=== PATIENT | female | born 1955 | race Caucasian/White ===

== ENCOUNTER → 2020-03-14 11:55 | Outpatient (BNVA) | payer SELFPAY | PROVIDERS: Family Provider Nurse Practitioner Family; PCP Family Medicine; Referring Provider Nurse Practitioner Family; Visit Provider Nurse Practitioner Family | DX: R32 Unspecified urinary incontinence (principal); R31.9 Hematuria, unspecified; R30.0 Dysuria | CPT/HCPCS: 80053; 81001; 88112 ==

== ENCOUNTER → 2020-04-04 14:25 | Outpatient (BNVA) | payer SELFPAY | PROVIDERS: Family Provider Nurse Practitioner Family; PCP Family Medicine; Visit Provider Urology | DX: R31.0 Gross hematuria (principal); N30.20 Other chronic cystitis without hematuria | CPT/HCPCS: 80053; 81001; 87086; 87106 ==

== ENCOUNTER 2020-05-01 08:06 | Outpatient (CLI) | payer SELFPAY ==
[2020-05-01 08:54] LABS: Blood Urea Nitrogen 25 mg/dL (8-23); Glomerular Filtration Rate 72.7 mL/min (90-130)
[2020-05-01] MEDS: iohexol 300 mg/mL 100 mL Btl IV (10:24)
--- NOTE | 2020-05-01 10:30 | CT_ITS ---
WS: [id number] CT ABDOMEN AND PELVIS WITH AND WITHOUT CONTRAST HISTORY: GROSS HEMATURIA TECHNIQUE: Unenhanced 5 mm axial imaging first performed through the abdomen. Post contrast imaging t hrough the abdomen and pelvis. Oral contrast has not been provided. Sagittal and coronal reformats a re submitted. All CT scans at [facility] use at least one of these dose optimization tech niques: automated exposure control; mA and/or kV adjustment per patient size (includes targeted exams where dose is matched to clinical indication); or iterative reconstruction. CONTRAST: Omnipaque 300; 95 mL IV. DLP: 4944.82 mGy.cm COMPARISON: None available. Lung bases are clear. Mild cardiomegaly. Small hiatal hernia. Subcapsular cyst RIGHT lobe of the liver measures 8 mm. Benign granuloma along the surface of the LEF T lobe. Liver is slightly enlarged but no mass. Normally distended gallbladder, indeterminate for cho lelithiasis. Normal size spleen with granulomata. Mild fatty replacement of the pancreas. Bilateral adrenal gland thickening. Slightly greater on the LEFT. Most consistent with benign adenoma . The largest on the LEFT measures 14 mm. Moderate atherosclerosis aorta with no aneurysm. RIGHT kidney: Mild perinephric stranding with no obstruction or mass. No renal calcifications. Mildly prominent extrarenal pelvis. The ureter is normal size. LEFT kidney: Normal size kidney with mild perinephric stranding. No solid mass or calcification. Norm al size ureter. Incomplete contrast opacification of the LEFT ureter at the pelvic brim. Urinary bladder: Mildly distended urinary bladder. There is diffuse wall thickening measuring up to 1 2 mm. The postcontrast imaging there is mild enhancement of the wall thickening. No focal mass. Diffuse constipation with numerous diverticula. No evidence for an obstruction or acute diverticuliti s. Appendix is normal. No ascites. No adenopathy. No osteoblastic or osteolytic bone disease. CT/CT abdomen pelvis wo/w [address] IMPRESSION: 1. No renal mass, calcifications or obstruction. 2. Mild bilateral perinephric stranding around each kidney may be chronic. May be related to mild UTI. Incomplete contrast opacification of the ureters. 3. Marked diffuse bladder wall thickening measuring up to 12 mm with mild enha ncement. Suspect cystitis. This may be the explanation for the patient's hematu rebecca. 4. Indeterminate for cholelithiasis, no cholecystitis. 5. Normal appendix. 6. Constipation.
== END 2020-05-01 08:07 | disposition home or self-care (01) ==
LOC: RAD 08:08
PROVIDERS: Family Provider Nurse Practitioner Family; PCP Family Medicine; Visit Provider Urology
DX: R31.0 Gross hematuria (principal); K59.00 Constipation, unspecified
CPT/HCPCS: 36415; 74178; 82565; 84520

== ENCOUNTER 2020-05-10 13:55 | Observation (INO) | payer SELFPAY ==
[2020-05-09 10:41] VITALS: BMI 36.3
[2020-05-10] VITALS (21 sets, daily range): BP systolic 122–152; BP diastolic 62–93; PULSE 63–76; RESP 12–19; TEMP 36.3–36.8; O2SAT 86–98
--- NOTE | 2020-05-10 11:42 | ANES.PREANE2 ---
Pre-Anesthetic Assessment Pre-Anesthetic Assessment: Height/Weight: Height 1.68 m Weight 102.058 kg Temp Pulse Resp BP Pulse Ox 97.5 F L 72 16 152/93 97 05/10/20 11:18 05/10/20 11:18 05/10/20 11:18 05/10/20 11:18 05/10/20 11:18 Preop Diagnosis: Abnormal bladder mucosa Proposed Procedure: Operation Date: 05/10/20 12:20 Proposed Procedures p Bladder Biopsy(Not Applicable) - Matt Phoenix MD s Cystoscopy/59121 N30.20 R39.89(Not Applicable) - Matt Phoenix MD Familial anesthetic complications: none Was Beta Steve taken within 24 hours: N/A Last intake: Intake Last Liquid Date 05/10/20 Last Liquid Time 07:30 Last Solid Date 05/09/20 Last Solid Time 20:00 Social: Social History: No alcohol and No tobacco Exam: Pre-Anes Outpt Exam: alert, oriented x 3, clear to auscultation bilaterally and regular rate & rhythm Airway: Cervical ROM: WNL MP: 3 Dentition: False Pulmonary: Pulmonary: None reported CV/HEM: Comments: tachycardia from thyroid : : None reported Hepatic: Hepatic: None reported GI: GI: None reported Metabolic: Metabolic: DM, Morbid obesity and Thyroid Musc/skel: Musc/skel: Fibromyalgia Neuropsych: Neuropsych: None reported Anesthetic Plan: ASA status: 2 Anesthesia: General Risk of > 500 ml blood loss (7ml/kg in children): No PFSH Anesthesia PFSH: Medical History Chronic cystitis Diabetes Gross hematuria Hypothyroidism Urgency of urination Surgical History H/O laparoscopy S/P tonsillectomy and adenoidectomy Family History Mother , at age 90 Pneumonia Father , at age 64 Heart disease Social History Smoking and tobacco status: former smoker Alcohol intake: never Marital status: Current occupational status: employed 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
[2020-05-10] MEDS: sodium chloride 0.9% 1,000 ML 30 ML IV (11:59)
[2020-05-10 12:03] LABS: Glucose Point of Care 181 mg/dL (70-110)
--- NOTE | 2020-05-10 12:15 | P.HPUD_ITS ---
Surgery/Procedure H&P Update DATE OF PROCEDURE: May 10, 2020 DATE H&P PERFORMED: 05/01/20 H&P UPDATE INFORMATION: I have reviewed H&P completed within last 30 days, No changes to prior documentation and H&P is in [facility] EMR on date indicated PREOP DIAGNOSIS: Abnormal bladder mucosa PLANNED PROCEDURE: Operation Date: 05/10/20 12:20 Proposed Procedures p Bladder Biopsy(Not Applicable) - Matt Phoenix MD s Cystoscopy/32751 N30.20 R39.89(Not Applicable) - Matt Phoenix MD
--- NOTE | 2020-05-10 12:16 | PM.OP ---
Operative Report Date of procedure: May 10, 2020 Pre-op Diagnosis: Abnormal bladder mucosa Post-op diagnosis: same Procedure Done: Cystoscopy, bladder biopsies Pathology: other (Tissue culture and anatomic pathology with bilateral sampling of abnormal mucosa ) Surgeon: Lizett Anesthesia: General Estimated blood loss: Minimal Urine output: Not measured Complications: None Condition: stable Disposition: PACU Brief History: Ms. Friedman is a very pleasant 64-year-old white female first evaluated February 2020 for complaints of bladder pain, gross hematuria, dysuria and spasm feeling. Urinalysis showed pyuria and large blood. Nitrite negative. She was initially treated with antibiotics and on follow-up after approximately 3 weeks there was no significant improvement in her symptoms. Pain was increasing. Was still having some hematuria as well. For that reason a cystoscopy was performed that showed a diffusely inflamed bladder, cloudy urine with sediment most typical for chronic cystitis but still quite impressive in its severity. To CIPROFLOXACIN with the addition of FLUCONAZOLE. Cytology was inflammatory but without malignant cells. She reacted poorly to the ciprofloxacin and was switched to KEFLEX. A CT scan was performed to look for evidence of any upper urinary tract abnormality as a source of bleeding and it was normal from an upper ureter tract perspective but did show severe bladder wall thickening without hydronephrosis. Symptoms failed to improve on antibiotics and for that reason it was elected to perform biopsies and tissue culture. Procedure: After routine preoperative evaluation examination and obtaining of informed consent was taken to the operating suite on 05/10/2020 where general anesthesia was administered without difficulty after appropriate timeout was performed, SCDs confirmed to be functioning, preoperative antibiotics administered, beta-rosas protocol confirmed. Prepped and draped in usual sterile fashion in dorsolithotomy position pain careful attention to avoiding pressure points. 21 Belarusian cystoscope with 30 degree lens was introduced into urethral meatus and advanced into the bladder under videoscopy. The bladder was systematically examined with findings consistent as seen in outpatient. There is diffuse inflammatory changes on the bladder wall involving approximately 70% mostly laterally and toward the dome. There was no distinct papillary tumor but there were some lesions that looked suspicious. The orifices were not involved in these changes. The urethra did not accommodate the 25 [place]ian continuous flow resectoscope sheath so [place] sounds were utilized to dilate the urethra in order for easy passage of the sheath. The gyrus bipolar system was utilized and samples were taken with the super loop both from the right lateral and left lateral wall. Several samples were sent for tissue culture. The button probe was utilized to fulgurate the base of each of these resection sites. On final inspection hemostasis was meticulous. All samples were removed from the bladder. The bladder was then drained with a 20 Bel[place]ian three-way Alonzo catheter with 10 cc in the balloon. She tolerated procedure well without complications and was awakened in the operating room and returned to the recovery room in stable condition. PLANS: 1. Maintain observation status overnight. 2. Light CBI prophylactically.
[2020-05-10 13:38] LABS: Glucose Point of Care 142 mg/dL (70-110)
[2020-05-10] MEDS: fentaNYL 50 mcg/mL INJ 2mL IVP (13:39)
[2020-05-10] MEDS: morphine 4 mg/mL SDV 1 mL 2 MG IVP ×2 (13:49→14:02)
--- NOTE | 2020-05-10 14:14 | SUR.PHASEI ---
PT RESTING QUIETLY TAKING ICE CHIPS PT C/O OF BURNING FACE SCALE 3 VSS AND NOT ELEVATED CARR PATENT OF CLEAR URINE , IV PATENT TO LT HAND, CBI INFUSING AT MOD RATE, REPORT CALLED TO FLOOR
--- NOTE | 2020-05-10 15:00 | SUR.PHASEI ---
1430 PT TO FLOOR , PT MOVES SELF TO BED CARR PATENT OF CLEAR URINE , CBI INFUSING AT MOD RATE, APPOX 400ML CBI INFUSED IN PACU AND 600 URINE EMPTIED. BILAT SCDS ON PT , LM STRAP TO SECURE CARR TO LT THIGH, PT ALERT AND TALKATIVE TO NURSE AMARI RN IN ROOM. BP 130/74,HR 65, RESP 18, SATS ON 3LNC 94%
[2020-05-10] MEDS: HYDROcodone-acetaminophen 5-325 mg Tablet 1 TAB PO ×2 (15:36→22:35)
[2020-05-10 17:13] LABS: Glucose Point of Care 140 mg/dL (70-110)
[2020-05-10] MEDS: cephALEXin 500 mg Capsule PO ×2 (19:31→22:06)
--- NOTE | 2020-05-10 19:50 | PC.NURSE ---
Pt resting in bed urine light pink 900 ml emptied from cantor bag.
[2020-05-10 20:02] LABS: Glucose Point of Care 297 mg/dL (70-110)
[2020-05-10] MEDS: insulin glargine 100 units/1 mL 20 UNIT SUBCUT (20:32)
[2020-05-11] VITALS (8 sets, daily range): BP systolic 118–140; BP diastolic 62–82; PULSE 64–76; RESP 16–20; TEMP 36.6–37.1; O2SAT 93–96
[2020-05-11] MEDS: HYDROcodone-acetaminophen 5-325 mg Tablet 1 TAB PO ×2 (04:52→10:57)
[2020-05-11 06:40] LABS: Glucose Point of Care 211 mg/dL (70-110)
--- NOTE | 2020-05-11 06:51 | PC.NURSE ---
cantor removed at Dr Lizett canas, pt tolerated well. Balloon intact. Hat placed in toliet and bottles
[2020-05-11] MEDS: levothyroxine 100 mcg Tablet 200 MCG PO (07:09)
[2020-05-11] MEDS: cephALEXin 500 mg Capsule PO ×2 (08:14→12:23)
[2020-05-11] MEDS: fluconazole 100 mg Tablet 200 MG PO (08:14)
--- NOTE | 2020-05-11 10:21 | PC.CHAP ---
Pastoral Care Encounter/Spiritual Assessment Type of Contact [] Declined re examiner visit [] Patient/Family/Request visit [] Outpatient visit [] Follow-up visit [] Physician referral [] Code/Alert [x] Routine visit [] Staff referral [] Actively dying [] Patient sleeping [] Family support [] [] Out of room [] Palliative care [] [] Receiving care in room [] Pre-surgical visit [] Trauma [] Long length of stay [] ICU visit [] Other: Relational/Emotional Strength [] Patient feels connected with others/family/visitors/staff [] Distress [] Loneliness/isolation [] Abandonment Spirituality of Patient [] Person of Shira [] Attends Congregational of their Shira [] Believes in Prayer [] Reads Bible or Faith materials [] There are Spiritual issues 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 [x] Prayer [x] Active listening [x] Non-anxious presence [x] Spiritual/emotional support [] Crisis/trauma care [] Spiritual counseling [] Bereavement support [] Provided bereavement packet [] Provided Bible/devotional materials [] Provided toy/stuffed animal, coloring book to patient or family member [] Provided Communion [] Anointing/[place] [] Salvation [x] Completed spiritual assessment [] Other: Impact on Illness or Injury [] Angry [] Fearful [] Anxious [] Often cries [] Exhaustion [] Unable to work [] Unable to attend sikhism [] Unable to walk/stand [] Unable to read [] Unable to drive [] Unable to eat/drink [] Unable to sleep [] Unable to be with family [] Patient intubated [] Other: Summary Patient resting well Time spent with patient 5 min
--- NOTE | 2020-05-11 10:40 | ANE.PACU2 ---
Inpatient post-anesthesia follow up: Airway intact: Yes Vital signs: Temperature 97.9 F Pulse Rate 71 Respiratory Rate 18 Blood Pressure 137/82 Pulse Oximetry 93 Oxygen Delivery Me thod [ Nasal Cannula Current Rate & Del keon] Oxygen Delivery Me thod Nasal Cannula Oxygen Flow Rate [ Current Rate 2 & Delivery] Oxygen Flow Rate 3 Fraction of Inspir ed Oxygen Hydration adequate: Yes Nausea and vomiting: No Pain level: 1 Mental status: Baseline
--- NOTE | 2020-05-11 10:46 | PC.NURSE ---
Cath removed at 0700 0800 voided 100mls slight pink color. 0900 voided 100mls clear, no visible blood or clots. 0905 bladder scan 79mls. No distention or increased tenderness.
--- NOTE | 2020-05-11 11:20 | PC.NURSE ---
1105 Voided 100mls, clear, slight pink, no clots.
--- NOTE | 2020-05-11 12:20 | PC.NURSE ---
1215 Patient bladder scanned and appears to be retaining 300ml'd urine. Patient becoming more tender and uncomfortable. Per Military Source Operations Officer, placed 16 vincentian cath, and secured to leg, with 10mls fluid to bulb. Patient had 700mls out of pink urine with some sediment. Will report to Dr. Teresa.
--- NOTE | 2020-05-11 15:27 | P.DS_ITS ---
Discharge Providers Date of Admission: 05/10/20 13:55 Date of Discharge: May 11, 2020 Attending Provider at Admission: Matt Phoenix MD Attending Provider at Discharge: Matt Phoenix MD Primary Care Provider: Neelam Galindo MD Reason for Visit Reason for Visit: N30.20 R39.89 UNBLE TO SEE DX Hospital Course Hospital Course: She was admitted on 05/10/2020 for biopsies of the bladder wall for histology as well as deep tissue cultures. Please see operative report. On postoperative day #1 the Alonzo catheter was removed and she voided spontaneously with clearing urine but after a couple voids she began to have increasing abdominal pain and decreasing urine output and Alonzo catheter was placed with 700 cc in her bladder. The pain that she was experiencing related to the retention resolved immediately. There was no severe bleeding afterwards. She was felt to be a good candidate for further convalescence at home while wait ing for the pathology report. Was discharged on the afternoon of postoperative day 1 in stable condition. Alonzo catheter was left indwelling at discharge with plans for voiding trial in [facility] instruction on 05/15/2020. Physical Exam Const: COMMON NORMALS: no acute distress, alert and well nourished GENERAL APPEARANCE: well kempt and well developed ORIENTATION/CONSCIOUSNESS: not confused Resp: COMMON NORMALS: normal respiratory effort EFFORT & INSPECTION: No labored and No Actively coughing Neuro: SENSORIUM/ORIENTATION: Yes alert Psych: COMMON NORMALS: mental status grossly normal APPEARANCE: Yes grossly normal and Yes well kempt ATTITUDE: Yes calm and Yes engaged Discharge Data Data Completed and Pending: Pending at discharge Category Date Time Status Tissue Culture an d Gram Stain [facility] Lab 05/10/20 13:00 Results Pathology: Surgic al [PTH] Routine Pth 05/10/20 13:29 Received Labs from last 24 hours 05/11/20 05/10/20 05/10/20 06:36 19:57 17:06 POC Glucose 211 297 140 Vitals: Last Vital Signs Temp 98.1 F 05/11/20 11:50 Pulse 74 05/11/20 11:50 Resp 20 H 05/11/20 11:50 BP 139/80 05/11/20 11:50 Pulse Ox 94 05/11/20 11:50 Discharge Plan Discharge Patient Disposition: Home, Self-Care Condition: Stable Prescriptions: Continued fluconazole 200 mg tablet 200 mg PO DAILY Qty: 30 RF: 1 cephalexin 500 mg capsule 500 mg PO QID Qty: 120 RF: 2 glipizide 10 mg tablet 10 mg PO BID RF: 0 Lantus U-100 Insulin 100 unit/mL solution 20 unit SUBCUT DAILY RF: 0 levothyroxine 200 mcg capsule 225 mcg PO DAILY RF: 0 Trulicity 1.5 mg/0.5 mL pen injector 1.5 mg SUBCUT .weekly RF: 0 hydrocodone-acetaminophen [Quinault] 5-325 mg tablet 1 tab PO Q6H PRN (Reason: bladder pain) 3 Days Qty: 10 RF: 0 Discharge Orders: Discharge Order (Routine); Ordered 05/11/20 Ordered By: Matt Phoenix Referrals: Matt Phoenix MD [Physician] - 05/15/20 (Voiding trial [facility] instruction) Discharge Diet: Usual diet Discharge Activity: Limit activity as instructed Activity Restrictions/Additional Instructions: 1. We will plan a voiding trial and self-catheterization instruction on the office next Thursday. 2. Continue to drink a lot of water to help keep your urine clear 3. He will have a leg bag and a night bag for the catheter drainage to use at your preference 4. Please call if you have any concerns prior to that time. 5. Limit lifting to 10 pounds. 6. [id number] Azo-Standard may be beneficial for discomfort related to the catheter. Discharge Attestations Time Spent in Discharge Care*: less than 30 min Quality Metrics Clinical Quality Measures During this hospital stay, did patient experience: None Coding Level of Care Code Acute Billiard Parlor Manager for Thomasg Fwd Exam Expanded Problem Focused
== END 2020-05-11 16:45 | disposition home or self-care (01) ==
LOC: MEDSURG 13:55
PROVIDERS: Admitting Provider Urology; PCP Family Medicine; Visit Provider Urology
PROC: (CPT 52204; principal; 2020-05-10 12:00)
PROC: 0TJB8ZZ Inspection of Bladder, Via Natural or Artificial Opening Endoscopic (ICD-10-PCS; CPT 52000; 2020-05-10 12:00)
DX: N32.89 Other specified disorders of bladder (principal); E11.9 Type 2 diabetes mellitus without complications; E66.01 Morbid (severe) obesity due to excess calories; Z68.36 Body mass index [BMI] 36.0-36.9, adult; M79.7 Fibromyalgia; E03.9 Hypothyroidism, unspecified; Z87.891 Personal history of nicotine dependence; Z79.4 Long term (current) use of insulin
CPT/HCPCS: 52204; 12345; 36416; 51702; 82962; 87070; 87176; 87205; 88305; 96372; G0378; J1815; J2270; J2704; J3010; J3490; J7030

== ENCOUNTER 2020-05-16 21:10 | Emergency (ER) | payer SELFPAY ==
[2020-05-16 21:53] LABS: Glucose Urine UA 2+ (Normal); Protein Urine 2+ (Negative); Urine Appearance Cloudy (CLEAR); Urine Color Dark Yellow (Yellow); pH Urine 5 (5-7)
[2020-05-16 21:54] LABS: Add Urine Microscopic? YES; Bilirubin Urine Neg (NEGATIVE); Blood Urine 3+ (Negative); Ketones Urine Negative (Negative); Leukocyte Esterase Urine 2+ (Negative); Nitrate Urine Negative (Negative); Urobilinogen Urine Norm (Negative)
[2020-05-16 22:17] VITALS: BP 167/84; PULSE 81; RESP 20; TEMP 37.1; O2SAT 97
[2020-05-16 22:21] LABS: RBC Urine >100 /hpf (0-2); WBC Urine TOO NUMEROUS TO CNT /hpf (0-5)
[2020-05-16 22:22] LABS: Add Urine Culture? No; Bacteria Urine 3+; Squamous Epithelial Cell Urine 15-25 (0-5)
[2020-05-16 23:43] LABS: Basophils # 0.1 10^3/uL (0.0-0.1); Basophils % 0.7 %; Eosinophils # 0.7 10^3/uL (0.0-0.8); Eosinophils % 6.1 %; Hematocrit 35.7 % (37.0-47.0); Hemoglobin 11.7 g/dL (11.5-15.3); Lymphocytes % 34.9 %; Mean Corpuscular HGB Conc 32.8 g/dL (30.0-36.0); Mean Corpuscular Hemoglobin 26.2 pg (28.0-34.0); Monocytes # 0.9 10^3/uL (0.2-0.9); Monocytes % 7.9 %; Neutrophils # 5.81 10^3/uL (1.8-7.7); Neutrophils % 50.2 %; Nucleated Red Blood Cells % 0 %; Platelet Count 322 10^3/cmm (130-400); Red Blood Count 4.46 10^6/uL (4.1-5.3); White Blood Count 11.6 10^3/uL (4.0-10.0)
[2020-05-16 23:59] LABS: Anion Gap 17.1 (5-19); Blood Urea Nitrogen 6 mg/dL (8-23); Calcium 9.7 mg/dL (8.5-10.5); Carbon Dioxide 22 mmol/L (22-29); Chloride 102 mmol/L (98-107); Glomerular Filtration Rate 225.4 mL/min (90-130); Glucose 105 mg/dL (65-115); Osmolality Calculated 282 mOsm/kg (285-295); Potassium 3.1 mmol/L (3.5-5.1); Sodium 138 mmol/L (136-145)
== END 2020-05-16 23:30 | disposition left against medical advice (07) ==
PROVIDERS: Emergency Provider Emergency Medicine; PCP Family Medicine
DX: Z53.21 Procedure and treatment not carried out due to patient leaving prior to being seen by health care provider (principal)
CPT/HCPCS: 36415; 80048; 81001; 81003; 85025; 99281

== ENCOUNTER → 2020-06-05 14:20 | Outpatient (BNVA) | payer SELFPAY | PROVIDERS: PCP Family Medicine; Visit Provider Student in an Organized Health Care Education/Training Program | DX: B37.9 Candidiasis, unspecified (principal); N30.20 Other chronic cystitis without hematuria | CPT/HCPCS: 81001; 87086; 87106; 87107; 87186 ==

== ENCOUNTER 2020-06-21 08:25 | Outpatient (RCR) | payer SELFPAY ==
[2020-06-14 10:45] VITALS: BP 186/70; PULSE 67; RESP 18; TEMP 36.6; O2SAT 96
[2020-06-14 11:18] VITALS: BP 175/85; PULSE 75; RESP 18; TEMP 36.6; O2SAT 98; BMI 36.3
[2020-06-15 13:09] VITALS: BP 169/80; PULSE 73; RESP 18; TEMP 36.7; O2SAT 93
[2020-06-16 17:27] VITALS: BP 156/73; PULSE 85; RESP 18; TEMP 36.8; O2SAT 96
[2020-06-17 17:20] VITALS: BP 123/86; PULSE 85; RESP 18; TEMP 36.8; O2SAT 95
[2020-06-18 08:41] VITALS: BP 180/78; PULSE 68; RESP 20; TEMP 36.7; O2SAT 97
[2020-06-19 11:55] VITALS: BP 178/82; PULSE 82; RESP 18; TEMP 36.5; O2SAT 97
[2020-06-20 09:23] VITALS: BP 196/90; PULSE 66; RESP 18; TEMP 36.6; O2SAT 95
--- NOTE | 2020-06-20 09:32 | SUR.PREOP ---
PATIENT AWARE THAT HER BLOOD PRESSURE IS ELEVATED. PATIENT STATED SHE WOULD CALL HER PCP AND REQUEST TO BE PUT BACK ON LISINOPRIL. THIS NURSE ENCOURAGED PATIENT TO CALL APOLINAR WHEN DONE WITH OUTPATIENT INFUSION. PATIENT IS ASYMPTOMATIC.
[2020-06-21 08:48] VITALS: BP 201/77; PULSE 74; RESP 18; TEMP 37.3; O2SAT 95
[2020-06-21 09:10] LABS: Alanine Aminotransferase 17 U/L (0-33); Alkaline Phosphatase 93 IU/L (35-105); Anion Gap 12.6 (5-19); Aspartate Amino Transferase 16 U/L (0-32); Blood Urea Nitrogen 13 mg/dL (8-23); Calcium 8.7 mg/dL (8.5-10.5); Carbon Dioxide 28 mmol/L (22-29); Chloride 101 mmol/L (98-107); Creatinine Clr Calc Pharmacy 140.7092; Globulin 2.9 g/dL (1.3-4.6); Glucose 233 mg/dL (65-115); Osmolality Calculated 290 mOsm/kg (285-295); Potassium 3.6 mmol/L (3.5-5.1); Sodium 138 mmol/L (136-145); Total Bilirubin 0.3 mg/dL (0.15-1.2); Total Protein 6.9 g/dL (6.6-8.7)
[2020-06-22 09:57] VITALS: BP 159/77; PULSE 72; RESP 18; TEMP 36.3; O2SAT 94
[2020-06-23 14:12] VITALS: BP 184/71; PULSE 79; RESP 18; TEMP 36.7; O2SAT 97
== END 2020-06-25 23:59 | disposition home or self-care (01) ==
LOC: OPS 08:25
PROVIDERS: PCP Nurse Practitioner Family; Visit Provider Student in an Organized Health Care Education/Training Program
DX: B37.9 Candidiasis, unspecified (principal)
CPT/HCPCS: 36415; 80053; 96365; J0637; J7050

== ENCOUNTER → 2020-07-03 15:25 | Outpatient (BNVA) | payer SELFPAY | PROVIDERS: PCP Nurse Practitioner Family; Visit Provider Student in an Organized Health Care Education/Training Program | DX: B37.9 Candidiasis, unspecified (principal) | CPT/HCPCS: 81003; 87086 ==

== ENCOUNTER → 2020-07-26 12:14 | Outpatient (BNVA) | payer SELFPAY | PROVIDERS: PCP Nurse Practitioner Family; Visit Provider Obstetrics & Gynecology | DX: N99.3 Prolapse of vaginal vault after hysterectomy (principal); Z87.828 Personal history of other (healed) physical injury and trauma | CPT/HCPCS: 87635 ==

== ENCOUNTER 2020-07-31 11:51 | Observation (INO) | payer SELFPAY ==
[2020-07-26 13:14] VITALS: BMI 36.3
--- NOTE | 2020-07-26 13:31 | ANES.PREANE2 ---
Pre-Anesthetic Assessment Pre-Anesthetic Assessment: Height/Weight: Height 1.68 m Weight 102.058 kg Preop Diagnosis: Abnormal bladder mucosa Proposed Procedure: Operation Date: 07/31/20 07:00 Proposed Procedures p Laparoscopic Uterosacral Ligament Suspen 85020 95618 91830 46821 N81.11 N99.3 Z87.828(Not Applicable) - MD lucas Smith Anterior Repair(Not Applicable) - MD lucas Smith Posterior Repair(Not Applicable) - MD lucas Smith Cystoscopy(Not Applicable) - MD lucas Smith poss Suprapubic Catheter Placement(Not Applicable) - Anthony Staples MD Familial anesthetic complications: None Social: Social History: No alcohol and No tobacco Exam: Pre-Anes Outpt Exam: alert, oriented x 3, clear to auscultation bilaterally and regular rate & rhythm Airway: MP: 2 Dentition: False CV/HEM: CV/HEM: HTN Metabolic: Metabolic: DM and Thyroid Musc/skel: Musc/skel: Fibromyalgia Neuropsych: Neuropsych: None reported Anesthetic Plan: ASA status: 2 Anesthesia: General Risk of > 500 ml blood loss (7ml/kg in children): No PFSH Anesthesia PFSH: Medical History (Updated 07/16/20 @ 08:17 by Demetria Nguyen LPN) Chronic cystitis Cystocele Cystocele, midline Diabetes Gross hematuria Hypertension Hypothyroidism Urgency of urination Surgical History (Updated 07/15/20 @ 16:51 by Anthony Staples MD) H/O laparoscopy H/O total vaginal hysterectomy (~1988) TVH with A&P repair. Dx: Uterovaginal prolapse S/P tonsillectomy and adenoidectomy Family History Father Hypertension Hypercholesteremia Mother Hypertension Hypercholesteremia Thyroid disease Other Heart disease Social History Smoking and tobacco status: former smoker Quit status (tobacco): has quit using tobacco Year quit tobacco: 2004 Alcohol intake: current Alcohol intake frequency: holidays/special occasions only Data Anesthesia Cardiac Studies: No Data to Display
[2020-07-31] VITALS (23 sets, daily range): BP systolic 143–209; BP diastolic 71–90; PULSE 67–92; RESP 10–26; TEMP 36.4–37.5; O2SAT 91–99
[2020-07-31] MEDS: phenazopyridine 100 mg Tablet 200 MG PO ×3 (06:25→20:23)
--- NOTE | 2020-07-31 06:45 | P.ANESUD_ITS ---
Pre-Anesthetic Update Pre-Anesthetic Assessment: Date of Surgery/Procedure: 07/31/20 Preop Promise gnosis: Vaginal vault prolapse after hysterectomy, Cystocele, Rectocele Proposed Procedure: Operation Date: 07/31/20 07:00 Proposed Procedures p Laparoscopic Uterosacral Ligament Suspen 35044 97360 60370 55841 N81.11 N99.3 Z87.828(Not Applicable) - MD lucas Smith Anterior Repair(Not Applicable) - MD lucas Smith Posterior Repair(Not Applicable) - MD lucas Smith Cystoscopy(Not Applicable) - MD lucas Smith poss Suprapubic Catheter Placement(Not Applicable) - Anthony Staples MD Any changes to Pre-Anesthetic Assessment?: No Last Intake: Intake Last Liquid Date 07/30/20 Last Liquid Time 22:00 Last Solid Date 07/30/20 Last Solid Time 19:00 Labs Last 48hrs: Laboratory Results - last 48 hr 07/31/20 07/31/20 07/31/20 06:39 06:54 06:54 WBC 10.6 H RBC 4.08 L Hgb 12.5 Hct 37.1 MCV 90.9 MCH 30.6 MCHC 33.7 RDW 12.4 Plt Count 239 MPV 10.1 Neut % (Auto) 65.1 Lymph % (Auto) 26.0 [place] % (Auto) 4.3 Eos % (Auto) 3.7 Baso % (Auto) 0.6 Neut # (Auto) 6.93 Lymph # (Auto) 2.8 [place] # (Auto) 0.5 Eos # (Auto) 0.4 Baso # (Auto) 0.1 Nucleated RBC % (a uto) 0 Nucleated RBCs # 0.0 Sodium 139 Potassium 4.2 Chloride 102 Carbon Dioxide 27 Anion Gap 14.2 BUN 19 Creatinine 0.5 GFR Calculation 125.0 Glucose 208 H POC Glucose 192 Calculated Osmolal ity 296 H Calcium 9.3 Blood Type Rho(D) Type Antibody Screen 07/31/20 07/31/20 07:24 12:53 WBC RBC Hgb Hct MCV MCH MCHC RDW Plt Count MPV Neut % (Auto) Lymph % (Auto) [place] % (Auto) Eos % (Auto) Baso % (Auto) Neut # (Auto) Lymph # (Auto) [place] # (Auto) Eos # (Auto) Baso # (Auto) Nucleated RBC % (a uto) Nucleated RBCs # Sodium Potassium Chloride Carbon Dioxide Anion Gap BUN Creatinine GFR Calculation Glucose POC Glucose 341 Calculated Osmolal ity Calcium Blood Type B Negative Rho(D) Type Negative Antibody Screen Negative Vitals: Temperature 98.3 F 07/31/20 13:35 Temperature Source Oral 07/31/20 13:35 Pulse Rate 78 07/31/20 13:35 Respiratory Rate 16 07/31/20 13:35 Respiratory Effort 07/31/20 12:11 Respiratory Depth Normal 07/31/20 12:11 Blood Pressure 148/84 07/31/20 13:35 Blood Pressure Lexi n 105 07/31/20 13:35 Blood Pressure Pos ition Semi Fowlers 07/31/20 13:35 Pulse Oximetry 94 07/31/20 13:35 Oxygen Delivery Me thod 07/31/20 13:35 Oxygen Flow Rate 3 07/31/20 13:35 Exam: Pre-Anes Outpt Exam: alert, oriented x 3, clear to auscultation bilaterally and regular rate & rhythm Cardiac Studies: No Data to Display
--- NOTE | 2020-07-31 06:57 | W.PM.OPSUD ---
Surgery/Procedure H&P Update DATE OF PROCEDURE: July 31, 2020 DATE H&P PERFORMED: 07/12/20 H&P UPDATE INFORMATION: I have reviewed H&P completed within last 30 days, I have examined patient prior to procedure, No changes to prior documentation and H&P is in [facility] [place] on date indicated PREOP DIAGNOSIS: Vaginal vault prolapse after hysterectomy, Cystocele, Rectocele PLANNED PROCEDURE: Operation Date: 07/31/20 07:00 Proposed Procedures p Laparoscopic Uterosacral Ligament Suspen 20126 99422 18673 97225 N81.11 N99.3 Z87.828(Not Applicable) - MD lucas Smith Anterior Repair(Not Applicable) - MD lucas Smith Posterior Repair(Not Applicable) - MD lucas Smith Cystoscopy(Not Applicable) - MD lucas Smith poss Suprapubic Catheter Placement(Not Applicable) - Anthony Staples MD
[2020-07-31] MEDS: ketorolac 30 mg/mL INJ IVP ×3 (06:58→18:31)
[2020-07-31 07:01] LABS: Glucose Point of Care 192 mg/dL (70-110)
[2020-07-31] MEDS: sodium chloride 0.9% 1,000 ML 30 ML IV (07:01)
[2020-07-31 07:13] LABS: Basophils # 0.1 10^3/uL (0.0-0.1); Basophils % 0.6 %; Eosinophils # 0.4 10^3/uL (0.0-0.8); Eosinophils % 3.7 %; Hematocrit 37.1 % (37.0-47.0); Hemoglobin 12.5 g/dL (11.5-15.3); Lymphocytes # 2.8 10^3/uL (0.8-4.8); Mean Corpuscular HGB Conc 33.7 g/dL (30.0-36.0); Mean Corpuscular Hemoglobin 30.6 pg (28.0-34.0); Mean Corpuscular Volume 90.9 fL (81-99); Mean Platelet Volume 10.1 fL (7.4-10.4); Monocytes # 0.5 10^3/uL (0.2-0.9); Monocytes % 4.3 %; Neutrophils # 6.93 10^3/uL (1.8-7.7); Neutrophils % 65.1 %; Nucleated Red Blood Cells % 0 %; Platelet Count 239 10^3/cmm (130-400); Red Blood Count 4.08 10^6/uL (4.1-5.3); Red Cell Distribution Width 12.4 % (12.1-15.1); White Blood Count 10.6 10^3/uL (4.0-10.0)
[2020-07-31 07:34] LABS: Anion Gap 14.2 (5-19); Blood Urea Nitrogen 19 mg/dL (8-23); Calcium 9.3 mg/dL (8.5-10.5); Carbon Dioxide 27 mmol/L (22-29); Chloride 102 mmol/L (98-107); Creatinine Clr Calc Pharmacy 140.7092; Glucose 208 mg/dL (65-115); Osmolality Calculated 296 mOsm/kg (285-295); Potassium 4.2 mmol/L (3.5-5.1); Sodium 139 mmol/L (136-145)
--- NOTE | 2020-07-31 08:35 | SUR.OPER ---
Called and notified of surgical progress.
[2020-07-31] MEDS: vasopressin 20 unit/mL INJ INJECTION (10:46)
--- NOTE | 2020-07-31 11:44 | SUR.PHASEI ---
1140 PATIENT TO PACU FROM OR. RR EVEN AND UNLABORED. CARR CATH IN PLACE, SUPRAPUBIC CATH IN PLACE, DRAINING ORANGE URINE. PATIENT RESTING COMFORTABLE ON GURNEY.
--- NOTE | 2020-07-31 12:06 | P.OP_ITS ---
Operative Report Date of procedure: July 31, 2020 Pre-op Diagnosis: Vaginal vault prolapse after hysterectomy, Cystocele, Rectocele Post-op Diagnosis: Vaginal vault prolapse after hysterectomy, Cystocele, Rectocele. Procedure Done: Laparoscopic uterosacral ligament suspension with enterocele repair, Anterior and posterior repair, Cystoscopy, Suprapubic catheter insertion Specimens removed/disposition: None Surgeon: Anthony Staples Padding Machine Operator: None Anesthesia: General Estimated blood loss (mL): 150 IV fluids (mL): 1,300 Urine output (mL): 350 Complications: None Findings: Third-degree vaginal vault prolapse, 3rd-4th degree cystocele, second- degree high rectocele, Deficient perineum. Adhesions of the epiploica to the vaginal cuff. Both ovaries were identified and adherent low in the pelvis. Brief History: Patient is a 64-year-old 7, para 6-0-1-6 postmenopausal female who is status post hysterectomy. She had presented to the office as a referral from Dr. Phoenix due to vaginal prolapse. She had been having problems with prola pse for approximately 5 to 6 years which is now progressed to the point where she had notices a bulge at the vaginal opening which will occasionally protrude beyond it. She denies problems currently with bladder emptying but had had problems previously resulting in infection. She reports having had stress incontinence in the past that had improved over time. She had had a prior vaginal hysterectomy with A&P repair due to prolapse. On exam, she was noted to have a second-degree vault prolapse with third-degree cystocele and mild rectocele with almost nonexistent perineal body. Treatment options were discussed with her and she is presenting for surgical treatment at this time. Procedure: Patient was taken to the operating room where general anesthesia was obtained. She was prepped and draped in usual sterile fashion in a dorsal supine position with legs in Toño style stirrups. Sequential compression boots have been placed prior to starting the case. Exam under anesthesia was performed. Patient was noted to have 3rd degree vaginal vault prolapse, 3rd-4th degree cystocele, and second-degree high rectocele. Perineal defect was also noted. Alonzo catheter was inserted. The infraumbilical region was injected with 1% lidocaine with epinephrine. Skin incision was made with the knife and a size 10 trocar and sheath inserted under direct visualization using an Optiview type technique. The anterior abdominal wall was inspected and noted be free of adhesions. In the left and right lower quadrants lateral to the inferior epigastric vessels, the skin was injected with 1% lidocaine with epinephrine. Skin incision was made with a knife and a 5 mm trocar and sheath inserted with direct visualization at each site. The pelvis was thoroughly inspected. She was noted to have both ovaries present. Adhesions of the epiploica to the vaginal cuff were present. She also had adhesions of the epiploica to the ovaries bilaterally. Using scissors with monopolar cautery, the adhesions were taken down. The pelvis was then further inspected with no abnormalities noted. Due to difficulty with keeping the bowel out of the operative area, decision was made to use a laparoscopic fan. To the right of the midline at approximately a third of the distance between the umbilicus and this pubic symphysis, the skin was injected with 1% lidocaine with epinephrine. Skin incision was made with a knife and a size 10 trocar and sheath were inserted under direct visualization. In addition approximately 2 fingerbreadths above the umbilicus in the midline, the skin was injected with 1% lidocaine with epinephrine. Skin incision was made with a knife and a 5 mm trocar and sheath were inserted under direct visualization. A laparoscopic fan was passed through the 10 mm port and the bowel held up out of the pelvis. Patient was noted to have a large enterocele. Using 2-0 silk suture, a pursestring stitch was placed picking up the peritoneum of the deep pelvis. Care was taken not to kink the ureters and no placement process. When tied, this obliterated the posterior cul-de-sac well. Using an EEA sizer, the vaginal vault was displaced in a cephalad direction identifying the cephalad most displacement. At that level, starting on the left side, an 0 Ethibond stitch was placed into the uterosacral ligament. Care was taken not to damage underlying structures, ureter, or bowel in the process. This was secured to the left corner of the vaginal vault and tied. On the right side, at the level of the cephalad most displacement of the vagina, 0 Ethibond suture was placed into the uterosacral ligament. Care was again taken not to damage the underlying structures, ureters, or bile in the process. This was secured into the left corner of the vaginal cuff and tied. There was good support of the vaginal cuff noted at this time. Alonzo catheter was removed and cystoscopy was performed. Both ureters were noted to be effluxing urine well. No suture material or masses were noted with in the bladder. Trabeculations were noted to be present. Bladder was drained and Alonzo catheter reinserted. At the right lower quadrant 10 mm site, the fascia was closed using a Michael Guzman suture passing device. 2 passes of 0 Vicryl suture were made through the fascia. When tied this allowed good pneumoperitoneum to be maintained. The abdomen was deflated and the other sheaths removed. The skin incisions were all reapproximated using 4-0 Vicryl suture and skin edges closed with skin glue. The vagina was inspected and patient was still noted to have a large cystocele present. The anterior vaginal wall was in injected with dilute Pitressin solution. Midline incision of the anterior wall was made with a knife. The edges were grasped with Allis clamps and the skin sharply dissected from the underlying vesicovaginal fascia. Evidence of prior anterior repair was present. The dissection was carried from the urethrovesical junction to the vaginal vault and to the lateral aspects of the anterior wall. Due to the degree of cystocele, decision was made to do a 2 layer plication of the anterior wall. Using 2-0 Vicryl sutures, stitches were placed at approximately a third of the distance between the midline and the lateral aspect of the anterior wall. Stitches were brought across to the contralateral side at approximately the same location and was spacing. Multiple stitches were placed. Once they were all placed, they were tied and reduced the cystocele. The second layer was then plicated using 2-0 Vicryl suture with stitches placed into the lateral aspects of the anterior wall and brought across to the contralateral side at the same level. Multiple sutures were placed. Once these were all tied the cystocele was essentially completely reduced. Excess vaginal mucosa was excised. The vaginal mucosa was reapproximated using 3-0 Vicryl suture in a running locking fashion. Patient had been previously noted to have almost nonexistent perineal body from old perineal laceration. Patient was noted to have a 4 fingerbreadth opening of the vaginal introitus. The rectocele had been almost completely eliminated with the vault suspension and enterocele repair. Due to the lack of a perineal body, a perineorrhaphy with limited posterior repair was performed. The skin of the perineum was injected with dilute Pitressin solution. A wedge shaped piece of skin was excised from the perineum. The lower third of the vaginal wall was undermined and opened in the midline. The vaginal mucosa was dissected from the underlying rectovaginal fascia. Using interrupted stitches of 2-0 Vicryl suture, the rectovaginal fascia was plicated in the midline. This process was carried out to the main part of the perineum. This built-up the perineum well. Excess vaginal mucosa was excised and the skin was closed using 3-0 Vicryl suture in a running locking fashion. The suture was brought up to the hymenal ring and then held. The perineal body was then further built-up with interrupted stitches of 2-0 Vicryl suture. Using the 3-0 Vicryl suture that is been previously held, a transition stitch was made in the bulbocavernosus muscles incorporating the stitch bilaterally and tied in the midline, reapproximating them well. Using the 3-0 Vicryl suture, the superficial portion of the perineal body was reapproximated the midline followed by subcuticular closure of the skin. At completion patient had approximately 2-1/2 fingerbreadth opening to the vaginal introitus. The Alonzo catheter was removed and cystoscopy again performed. Both ureters were noted to be effluxing urine well. No suture material or masses were noted within the bladder. The bladder was then filled with approximately 500 mL's of fluid. Approximately 1 fingerbreadth above the pubic symphysis in the midline, skin incision was made with a knife. Using a suprapubic catheter kit, trocar was passed into the dome of the bladder with the catheter passed through the trocar. The trocar was then removed. The catheter balloon was then inflated. Catheter was secured to the anterior abdominal wall using 3-0 nylon suture. Bladder was drained and Alonzo catheter reinserted. The vagina was packed with 1 inch Nu Gauze. Patient tolerated the procedures well. Sponge, needle, and instrument counts were correct. Drains: Alonzo catheter and suprapubic catheter Postoperative Status: Patient was transferred recovery room in satisfactory condition.
[2020-07-31] MEDS: fentaNYL 50 mcg/mL INJ 2mL IVP (12:11)
--- NOTE | 2020-07-31 12:37 | PC.NURSE ---
Patient here from PACU, transferred via stretcher, repositioned in bed, yamil pad clean and dry, cantor cath and suprapubic cath draining freely, patient reports a pain level of 8 on 0-10 pain scale to right lower abdomen, vitals stable as charted, incision sites clean dry and intact open to air, discussed pain management and fall precautions, verbalized understanding and denies further questions or concerns. Call light in reach, side rails up X2
--- NOTE | 2020-07-31 12:40 | PM.PACU ---
PACU note Post-Anesthesia Exam: awake and vital signs stable Disposition: admitted
--- NOTE | 2020-07-31 12:40 | SUR.PHASEI ---
1226 PATIENT TO MED SURG. TOLERATING ICE CHIPS. CARR CATH AND SUPARPUBIC CATH IN PLACE, DRAINING , RED/ORANGE URINE.
[2020-07-31 12:56] LABS: Glucose Point of Care 341 mg/dL (70-110)
[2020-07-31] MEDS: dextrose 5%-lactated ringers 1,000 ML 125 ML IV ×2 (12:56→20:24)
[2020-07-31] MEDS: HYDROcodone-acetaminophen 5-325 mg Tablet PO ×2 (13:25→20:23)
--- NOTE | 2020-07-31 13:36 | PC.NURSE ---
Ice chips and ice water provided, patient requesting [place] for pain, states, I have taken them in the past I will not get nauseated, I do not want to try anything else. PRN norco given per doctors orders, see MAR for further details. SCD's in place, call light in reach.
[2020-07-31] MEDS: morphine 4 mg/mL SDV 1 mL IVP ×2 (15:45→17:57)
--- NOTE | 2020-07-31 16:39 | PC.NURSE ---
Assisted up to chair, X2 assist, used pillow to brace abdomen, Call light in reach.
[2020-07-31 17:06] LABS: Glucose Point of Care 266 mg/dL (70-110)
[2020-07-31] MEDS: docusate sodium 100 mg Capsule PO (17:24)
--- NOTE | 2020-07-31 17:48 | PC.NURSE ---
Assisted back to bed, X2 assist, repositioned and placed call light in reach, side Rails up X2.
[2020-07-31 21:11] LABS: Glucose Point of Care 201 mg/dL (70-110)
[2020-08-01 01:01] VITALS: BP 117/62; PULSE 81; RESP 18; TEMP 37.1; O2SAT 94
[2020-08-01] MEDS: HYDROcodone-acetaminophen 5-325 mg Tablet PO ×2 (01:42→08:34)
[2020-08-01] MEDS: ketorolac 30 mg/mL INJ IVP ×2 (02:02→06:27)
--- NOTE | 2020-08-01 03:00 | ANE.PACU2 ---
Inpatient post-anesthesia follow up: Airway intact: Yes Vital signs: Temperature 97.8 F Pulse Rate 75 Respiratory Rate 18 Blood Pressure 135/68 Pulse Oximetry 93 Oxygen Delivery Me thod Room Air Oxygen Flow Rate 2 Fraction of Inspir ed Oxygen Hydration adequate: Yes Nausea and vomiting: No Pain level: 1 Mental status: Baseline
[2020-08-01 04:10] VITALS: BP 135/68; PULSE 75; RESP 18; TEMP 36.6; O2SAT 93
[2020-08-01] MEDS: dextrose 5%-lactated ringers 1,000 ML 125 ML IV (04:25)
--- NOTE | 2020-08-01 05:56 | PC.NURSE ---
SHIFT SUMMARY Has rested well tonight. po Hydrocodone and scheduled IV Toradol have done well for pain control. Says right abdomen is where most of her pain is located still. Up to ambulate in vasquez this am. Moves slow but melinda well. Has had adequate output from Alonzo and suprapubic cath. Output from each varies as to which has most. Urine orange from meds. IV infusing at 125ml/hr rate. All surgical stab incisions are clean & dry with dermabond closure. Some bruising at sites. Vag packing remains in place. Has very small amt bleeding on pad this am. Will advance to regular diet this am. Is passing flatus
[2020-08-01 06:19] LABS: Hematocrit 32.8 % (37.0-47.0); Hemoglobin 10.7 g/dL (11.5-15.3); Mean Corpuscular HGB Conc 32.6 g/dL (30.0-36.0); Mean Corpuscular Hemoglobin 30.7 pg (28.0-34.0); Mean Corpuscular Volume 94.3 fL (81-99); Mean Platelet Volume 9.9 fL (7.4-10.4); Platelet Count 237 10^3/cmm (130-400); Red Blood Count 3.48 10^6/uL (4.1-5.3); Red Cell Distribution Width 12.7 % (12.1-15.1); White Blood Count 13.4 10^3/uL (4.0-10.0)
[2020-08-01 07:21] LABS: Glucose Point of Care 293 mg/dL (70-110)
[2020-08-01] MEDS: docusate sodium 100 mg Capsule PO (07:29)
[2020-08-01] MEDS: levothyroxine 150 mcg Tablet 225 MCG PO (07:29)
--- NOTE | 2020-08-01 07:29 | PM.PN ---
Subjective Subjective: Interval history: Patient reports having pain in the right lower quadrant, but states that the pain has been adequately controlled overall. She denied lightheadedness or dizziness with ambulation. She denied shortness of breath or chest pains. She reports tolerating clear liquids without nausea or vomiting. She reports passing flatus this morning. Vitals/I&O/Wt Last Vital Signs Temp 97.8 F 08/01/20 04:10 Pulse 75 08/01/20 04:10 Resp 18 08/01/20 04:10 BP 135/68 08/01/20 04:10 Pulse Ox 93 08/01/20 04:10 07/31/20 08/01/20 08/01/20 22:59 06:59 14:59 Intake Total 1053.333 / 2653.333 1300 / 3953.333 Output Total 1065 / 2195 425 / 2620 Balance -11.667 / 458.333 875 / 1333.333 Physical Exam Const: COMMON NORMALS: no acute distress, average body habitus, alert and well nourished GENERAL APPEARANCE: well developed ORIENTATION/CONSCIOUSNESS: Yes oriented to person, Yes oriented to place and Yes oriented to time Resp: COMMON NORMALS: normal respiratory effort and clear to auscultation bilaterally AUSCULTATION: clear to auscultation bilaterally Cardio: COMMON NORMALS: regular rate, regular rhythm, No gallops present (Cardio), No murmurs present (Cardio) and No rub (Cardio) RATE: regular rate RHYTHM: regular rhythm GI: COMMON NORMALS: Soft to palpation, No hepatosplenomegaly present and no masses INSPECTION: Yes incision (Laparoscopy sites well approximated with skin glue present.) AUSCULTATION: Yes normoactive bowel sounds PALPATION: Yes Soft to palpation, Yes Tenderness to palpation present (GI) (Mild tenderness throughout the abdomen, but increased in the lower abdomen.), Yes No hepatosplenomegaly present and No Hernia present : EXTERNAL FEMALE EXAM: No Hernia present Extremity: COMMON NORMALS: no clubbing, cyanosis or edema and no calf tenderness NARRATIVE EXTREMITY EXAM: SCDs in use. Neuro: SENSORIUM/ORIENTATION: Yes alert, Yes oriented to person, Yes oriented to place and Yes oriented to time Psych: COMMON NORMALS: normal affect MOOD & AFFECT: Yes euthymic mood Urinary Catheter Management^: Alonzo: Cath Placed During This Visit: yes, but has since been removed by the nurse Reason for Continuing Indwelling Catheter: Decision to DC Catheter Urinary Catheter Date of Insertion: 07/31/20 Urinary Catheter Time of Insertion: 10:16 Date Urinary Catheter Removed: 08/01/20 Time Urinary Catheter Discontinued: 07:20 Data : 08/01/20 05:34 07/31/20 06:54 A&P Assessment and plan (1) Vaginal vault prolapse after hysterectomy: Postoperative day 1, status post laparoscopic uterosacral ligament suspension with enterocele repair, anterior and posterior colporrhaphy, cystoscopy with suprapubic catheter insertion. Patient is doing well overall today. Increase activities. May shower. Advance to regular diet. Alonzo catheter and vaginal packing removed this morning. Start voiding trials this morning. If voided volumes greater than 100 mL with postvoid residual of less than 100 mL, then plan to remove suprapubic catheter as well. Discharge instructions were discussed with her. Plan to discharge to home later today. Status: Acute (2) Cystocele, midline: See Vaginal Vault Prolapse . Status: Acute (3) Rectocele: See Vaginal Vault Prolapse . Status: Acute (4) Diabetes: Patient was continued on her Lantus dose following surgery. She was covered with sliding scale insulin during the day yesterday. Will restart her usual dose of glipizide today. Status: Acute Qualifiers: Diabetes mellitus type: type 2 Diabetes mellitus custodial insulin use: without marine oil terminal superintendent use Diabetes mellitus complication status: without complication Qualified Code(s): E11.9 - Type 2 diabetes mellitus without complications (5) Hypertension: Patient has been continued on her usual dose of lisinopril. Status: Acute Qualifiers: Hypertension type: essential hypertension Qualified Code(s): I10 - Essential (primary) hypertension Attestations Medical Necessity Statement*: Plan to discharge to home later today. 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
[2020-08-01] MEDS: lisinopril 5 mg Tablet 30 MG PO (07:30)
[2020-08-01] MEDS: phenazopyridine 100 mg Tablet 200 MG PO (07:31)
[2020-08-01 08:21] VITALS: BP 129/67; PULSE 69; RESP 18; TEMP 37.1; O2SAT 94
[2020-08-01] MEDS: insulin glargine 100 units/1 mL 20 UNIT SUBCUT (08:35)
[2020-08-01 10:01] LABS: Glucose Point of Care 282 mg/dL (70-110)
--- NOTE | 2020-08-01 10:26 | PC.NURSE ---
Catheter prn Catheter clamped at 0730 until 0950, patient attempted to urinate with no results. Catheter unclamped and drained with 100 ml dark red urine noted. Catheter clamped again. Will attempt to urinate in 2 hours at 1150 am
[2020-08-01 11:20] LABS: Glucose Point of Care 242 mg/dL (70-110)
[2020-08-01 11:36] VITALS: BP 100/56; PULSE 71; RESP 18; TEMP 37.2; O2SAT 90
[2020-08-01] MEDS: ibuprofen 800 mg tablet PO (11:42)
--- NOTE | 2020-08-01 13:19 | P.DS_ITS ---
Discharge Providers Date of Admission: 07/31/20 11:51 Date of Discharge: August 01, 2020 Attending Provider at Admission: Anthony Staples MD Attending Provider at Discharge: Anthony Staples MD Primary Care Provider: CARMEN JENKINS Diagnoses at Discharge Discharge Diagnosis (1) Vaginal vault prolapse after hysterectomy: Status: Acute (2) Cystocele, midline: Status: Acute (3) Rectocele: Status: Acute (4) Diabetes: Status: Acute Qualifiers: Diabetes mellitus complication status: without complication Diabetes mellitus intermediate manager insulin use: without intermediate manager use Diabetes mellitus type: type 2 Qualified Code(s): E11.9 - Type 2 diabetes mellitus without complications (5) Hypertension: Status: Acute Qualifiers: Hypertension type: essential hypertension Qualified Code(s): I10 - Essential (primary) hypertension Reason for Visit Reason for Visit: cystocele Hospital Course Hospital Course: Patient is a 64-year-old female 7, para 6-0-1-6 who is postmenopausal and status post hysterectomy. She presented to the office as a referral from Dr. Phoenix due to vaginal prolapse. She had been having problems with vaginal prolapse for approximately 5 to 6 years but it is now progressed to the point that she notices a bulge at the vaginal opening and occasionally beyond that. She reports having had stress incontinence symptoms in the past but this had improved over time. She had had problems with bladder emptying resulting in infections but this had also improved. At the time of her prior hysterectomy, she had had an AMP repair. During the exam, she had been found to have a second-degree vault prolapse with 1/3 degree cystocele and a mild rectocele with almost a nonexistent perineal body. Treatment options had been discussed with her and she wished to proceed to a surgical treatment. Past medical history was significant for her having type 2 diabetes, hypertension, and hypothyroidism. Patient presented to the hospital and had a laparoscopic uterosacral ligament s uspension with enterocele repair, A&P repair, cystoscopy, and suprapubic catheter insertion. She did well following surgery. Sugars were covered with sliding scale insulin after surgery. She was also continued on her levothyroxine and lisinopril. Postoperative Day 1 Patient reported doing well. She was reporting right lower quadrant pain which had been controlled with pain medications. She denied lightheadedness or dizziness with ambulation. She denies shortness of breath or chest pains. She was tolerating clear liquids that morning without nausea and vomiting. She had started passing flatus that morning. Diet was advanced and she tolerated it well. Vaginal packing was removed in the morning and voiding trial started. She was unable to void on her own with post void residuals of greater than 100 mL. As a result she went home with Alonzo catheter present. Patient was discharged home later on in the day of postoperative day 1. Discharge instructions have been discussed with her. On the Thursday after discharge, she had been instructed to perform post void residuals and to call the office on Thursday with the results. She was to leave the catheter open to drain until Thursday. She had also been instructed to resume all of her usual home medications. Physical Exam Urinary Catheter Management^: Alonzo: Cath Placed During This Visit: yes, but has since been removed by the nurse Reason for Continuing Indwelling Catheter: Decision to DC Catheter Urinary Catheter Date of Insertion: 07/31/20 Urinary Catheter Time of Insertion: 10:16 Date Urinary Catheter Removed: 08/01/20 Time Urinary Catheter Discontinued: 07:20 Discharge Data Data Completed and Pending: Pending at discharge Category Date Time Status ES surgery / GI i mages Routine Exams 07/31/20 06:44 Taken Retype for Patiet s ABO/Rh Routine Lab 07/31/20 08:36 Ordered Urine Culture Carmella mercedes Lab 07/31/20 08:00 Results Labs from last 24 hours 08/01/20 08/01/20 08/01/20 11:04 07:16 06:38 WBC RBC Hgb Hct MCV MCH MCHC RDW Plt Count MPV POC Glucose 242 293 282 08/01/20 07/31/20 07/31/20 05:34 20:59 17:01 WBC 13.4 H RBC 3.48 L Hgb 10.7 L Hct 32.8 L MCV 94.3 MCH 30.7 MCHC 32.6 RDW 12.7 Plt Count 237 MPV 9.9 POC Glucose 201 266 Vitals: Last Vital Signs Temp 98.9 F 08/01/20 11:36 Pulse 71 08/01/20 11:36 Resp 18 08/01/20 11:36 BP 100/56 08/01/20 11:36 Pulse Ox 90 08/01/20 11:36 Discharge Plan Discharge Patient Disposition: Home Condition: Stable Prescriptions: New hydrocodone-acetaminophen 5-325 mg Tablet 1 - 2 tab PO Q6H PRN (Reason: Moderate To Severe Pain) Qty: 30 RF: 0 ibuprofen 800 mg Tablet 800 mg PO TID PRN (Reason: pain) Qty: 40 RF: 0 Continued bumetanide 1 mg tablet 1 mg PO DAILY PRN (Reason: swelling) RF: 0 lisinopril 5 mg tablet 30 mg PO DAILY RF: 0 glipizide 10 mg tablet 10 mg PO BID RF: 0 Lantus U-100 Insulin 100 unit/mL solution 20 unit SUBCUT DAILY RF: 0 Trulicity 1.5 mg/0.5 mL pen injector 1.5 mg SUBCUT .weekly RF: 0 levothyroxine 200 mcg capsule 225 mcg PO DAILY RF: 0 ibuprofen 200 mg capsule 800 mg PO Q6H PRN (Reason: Pain) RF: 0 Discharge Orders: Discharge Order (Routine); Ordered 08/01/20 Ordered By: Anthony Staples Referrals: Anthony Staples MD [Physician] - 08/15/20 9:45 am (Postoperative visit.) Discharge Diet: Regular Discharge Activity: Limit activity as instructed Patient Instructions: Hydrocodone/Acetaminophen (By mouth), Ibuprofen (By mouth), Alonzo Catheter Care, How to Care for Your Suprapubic Catheter (GEN), OB Abdominal Surgery - [facility] Activity Restrictions/Additional Instructions: Starting Thursday, 1. Clamp catheter. 2. Attempt to void at least every 2 hours and record amount. If voided volume plus residual is less than 200 mL, then increase the time between attempted voids. 3. After attempted void, unclamp catheter for approximately 10 minutes and then reclamped catheter and record amount. 4. Repeat the above steps. 5. At bedtime, leave the catheter unclamped. 6. Call the office Thursday morning with results of your voided volumes and residuals. 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
--- NOTE | 2020-08-01 14:10 | PC.CHAP ---
Pastoral Care Encounter/Spiritual Assessment Type of Contact [] Declined bessemer converter operator visit [] Patient/Family/Request visit [] Outpatient visit [] Follow-up visit [] Physician referral [] Code/Alert [X] Routine visit [] Staff referral [] Actively dying [] Patient sleeping [] Family support [] [] Out of room [] Palliative care [] [] Receiving care in room [] Pre-surgical visit [] Trauma [] Long length of stay [] ICU visit [] Other: Relational/Emotional Strength [] Patient feels connected with others/family/visitors/staff [] Distress [] Loneliness/isolation [] Abandonment Spirituality of Patient [] Person of Shira [] Attends Scientology of their Shira [] Believes in Prayer [] Reads Bible or Jewish materials [] There are Spiritual issues to be addressed Director [facility] 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 [] Prayer [] Active listening [] Non-anxious presence [] Spiritual/emotional support [] Crisis/trauma care [] Spiritual counseling [] Bereavement support [] Provided bereavement packet [] Provided Bible/devotional materials [] Provided toy/stuffed animal, coloring book to patient or family member [] Provided Communion [] Anointing/[place] [] Salvation [] Completed spiritual assessment [] Other: Impact on Illness or Injury [] Angry [] Fearful [] Anxious [] Often cries [] Exhaustion [] Unable to work [] Unable to attend alevism [] Unable to walk/stand [] Unable to read [] Unable to drive [] Unable to eat/drink [] Unable to sleep [] Unable to be with family [] Patient intubated [] Other: Summary Time spent with patient
--- NOTE | 2020-08-01 14:31 | PC.NURSE ---
Discharge note Patient discharge instructions given per physician orders. New meds with side effects taught. Patient verbalized understanding. IV removed with catheter intact. Pressure dressing applied. Patient tolerated well.
== END 2020-08-01 14:50 | disposition home or self-care (01) ==
LOC: MEDSURG 11:51
PROVIDERS: Admitting Provider Obstetrics & Gynecology; PCP Nurse Practitioner Family; Visit Provider Obstetrics & Gynecology
PROC: 0USG4ZZ Reposition Vagina, Percutaneous Endoscopic Approach (ICD-10-PCS; CPT 57425; principal; 2020-07-31 07:00)
PROC: 0JQC0ZZ Repair Pelvic Region Subcutaneous Tissue and Fascia, Open Approach (ICD-10-PCS; CPT 57240; 2020-07-31 07:00)
PROC: (CPT 57250; 2020-07-31 07:00)
PROC: 0TJB8ZZ Inspection of Bladder, Via Natural or Artificial Opening Endoscopic (ICD-10-PCS; CPT 52000; 2020-07-31 07:00)
PROC: (CPT 51102; 2020-07-31 07:00)
DX: N99.3 Prolapse of vaginal vault after hysterectomy (principal); E11.9 Type 2 diabetes mellitus without complications; I10 Essential (primary) hypertension; Z79.4 Long term (current) use of insulin; E03.9 Hypothyroidism, unspecified; Z87.891 Personal history of nicotine dependence; Z82.49 Family history of ischemic heart disease and other diseases of the circulatory system
CPT/HCPCS: 57260; 57425; 12345; 36415; 36416; 80048; 82962; 85025; 85027; 86850; 86900; 87086; 96361; 96365; 96372; 96374; 96375; G0378; J0131; J0637; J0690; J1815 ×2; J1885; J2270; J2405; J2704; J2710; J3010; J3490; J7030; J7050

== ENCOUNTER 2021-07-03 07:53 | Outpatient (CLI) | payer OTHER, SELFPAY ==
--- NOTE | 2021-07-03 08:00 | MM_ITS ---
WS: [id number] SCREENING DIGITAL MAMMOGRAM WITH CAD HISTORY: SCREENING COMPARISON: None available. Bilateral CC and MLO views submitted. Computer aided detection analyzed. Breast composition: There are scattered areas of fibroglandular density. Partially visualized nodule against the posterior superior RIGHT chest wall associated with the pectoralis muscle. This may be a lymph node but needs to be further evaluated. Otherwise benign appearing calcifications. MM/[place] [id number] IMPRESSION: BI-RADS: 0-Incomplete: Need additional imaging evaluation FOLLOW UP: Need Additional Imaging RIGHT breast: Spot compression views (exaggerated lateral CC and MLO). True ML. Ultrasound to follow if abnormality persists.
== END 2021-07-03 07:54 | disposition home or self-care (01) ==
LOC: RADSHAW 07:56
PROVIDERS: PCP Nurse Practitioner Family; Visit Provider Family Medicine
DX: Z12.31 Encounter for screening mammogram for malignant neoplasm of breast (principal)
CPT/HCPCS: 77067

== ENCOUNTER 2021-07-15 13:26 | Outpatient (CLI) | payer OTHER, SELFPAY ==
--- NOTE | 2021-07-15 13:31 | MM_ITS ---
WS: [id number] ADDITIONAL VIEWS RIGHT BREAST HISTORY: ABNORMAL MAMMOGRAM RT BREAST COMPARISON: 07/03/2021 Compression views right CC and MLO projection. True ML also submitted. Partially visualized nodule prior study corresponds to a benign lymph node with fatty hilum. No addit ional imaging necessary. MM/[place] [id number] IMPRESSION: BI-RADS: 2-Benign FOLLOW-UP: 1 Year Follow-up
== END 2021-07-15 13:27 | disposition home or self-care (01) ==
LOC: RADSHAW 13:29
PROVIDERS: PCP Nurse Practitioner Family; Visit Provider Nurse Practitioner Family
DX: R92.8 Other abnormal and inconclusive findings on diagnostic imaging of breast (principal)
CPT/HCPCS: 77065

== ENCOUNTER 2021-10-30 08:12 | Outpatient (CLI) | payer SELFPAY ==
[2021-10-30 08:20] VITALS: BP 152/71; PULSE 75; RESP 19; TEMP 36.5; O2SAT 97; BMI 36.8
[2021-10-30 09:11] VITALS: BP 152/71; PULSE 75; RESP 19; TEMP 37.4; O2SAT 97
[2021-10-30 10:02] VITALS: BP 139/72; PULSE 70; RESP 17; TEMP 37.1; O2SAT 97
[2021-10-30 10:10] VITALS: BP 139/72; PULSE 70; RESP 17; TEMP 37.1; O2SAT 97
== END 2021-10-30 08:13 | disposition home or self-care (01) ==
LOC: OPS 08:14
PROVIDERS: PCP Nurse Practitioner Family; Visit Provider Nurse Practitioner Family
DX: U07.1 COVID-19 (principal)
CPT/HCPCS: 96365

== ENCOUNTER 2022-01-21 12:47 | Outpatient (CLI) | payer OTHER, SELFPAY ==
--- NOTE | 2022-01-21 13:04 | MM_ITS ---
WS: [id number] RIGHT 3D TOMOSYNTHESIS DIGITAL MAMMOGRAPHY WITH CAD CLINICAL INFORMATION: ABNORMAL MAMMOGRAM RT BREAST;ENLARGEMENT HISTORY: Palpable lymph nodes RIGHT axilla COMPARISON: July 03, 2021 TECHNIQUE: 5 views of the right breast were obtained. FINDINGS: Scattered fibroglandular densities of the right breast. Palpable marker along the axillary tail. Surr ounding prominent lymph nodes with fatty yolie similar in appearance to the prior examination. Ultraso und is pending. A few punctate calcifications. Vascular calcification. ULTRASOUND BREAST RIGHT TECHNIQUE: Ultrasound right breast focused area of concern. CLINICAL INFORMATION: ABNORMAL MAMMOGRAM RT BREAST;ENLARGEMENT FINDINGS: Ultrasound RIGHT breast along the axillary tail and RIGHT axilla. Several prominent lymph nodes are v isualized with persistent fatty hilum. No cortical thickening. Largest lymph node measures 2.0 x 1.0 x 2.2 cm in the RIGHT axilla. These are probably benign. This can be followed up in 3 months with ult rasgee if continued concern. MM/[place] [id number] IMPRESSION: Prominent lymph nodes can be followed up in 3 months with ultrasoun d if continued concern BI-RADS: 3-Probably Benign FOLLOW UP: 3 Month Follow-up
== END 2022-01-21 12:48 | disposition home or self-care (01) ==
LOC: RADSHAW 12:53
PROVIDERS: PCP Nurse Practitioner Family; Visit Provider Nurse Practitioner Family
DX: R92.8 Other abnormal and inconclusive findings on diagnostic imaging of breast (principal)
CPT/HCPCS: 76642; 77061

== ENCOUNTER 2022-04-01 11:32 | Outpatient (CLI) | payer OTHER, SELFPAY ==
--- NOTE | 2022-04-01 11:45 | US_ITS ---
WS: [id number] INDICATION: Enlarged lymph nodes TECHNIQUE: Ultrasound RIGHT axilla FINDINGS: Comparison January 21, 2022 Ultrasound RIGHT axilla demonstrates persistent prominent lymph nodes in the RIGHT axilla similar to previous. Largest lymph node measures 4.8x 1.7 x 2.0 cm. No significant cortical thickening. Lymph nodes demonstrate persistent fatty hilum with no significant cortical thickening. Although nons pecific this favors a benign etiology, but considering persistent enlargement and palpable concern re commend further evaluation with ultrasound-guided biopsy. US/US soft tissue/extremity [id number] IMPRESSION: 1. Previously described enlarged lymph nodes are persistent. 2. Considering persistence, recommend ultrasound-guided biopsy of the largest lymph node, measuring 4.8 x 1.7 x 2.0 cm today, for more definitive evaluation. .
== END 2022-04-01 11:33 | disposition home or self-care (01) ==
LOC: RAD 11:34
PROVIDERS: PCP Nurse Practitioner Family; Visit Provider Nurse Practitioner Family
DX: R92.8 Other abnormal and inconclusive findings on diagnostic imaging of breast (principal)
CPT/HCPCS: 76882

== ENCOUNTER 2022-09-05 11:51 | Outpatient (CLI) | payer SELFPAY ==
--- NOTE | 2022-09-05 12:13 | USCV_ITS ---
Rosa Friedman Age: 66 Gender: F : 1955 Exam Date: 09/05/2022 12:42 Ordering Phys: Nicholas London MD Technologist: LEONCIO [place] [facility] [place]: LT LEG EDEMA AND PAIN HISTORY: Lower extremity edema. PROCEDURES: Venous duplex imaging was performed in only the left lower extremity. The following venous structures were evaluated: common femoral vein, profunda vein, proximal portion of the greater saphenous vein, superficial femoral vein, and the popliteal vein. In addition, the posterior tibial and peroneal trunk were evaluated. FINDINGS: Normal 2-D Doppler and augmentation and compressibility throughout the lower extremity venous structures. Additional imaging through the proximal calf veins also reveals no thrombus. Limited evaluation of the greater saphenous vein is patent with no thrombus. CONCLUSIONS No DVT left lower extremity. Dr. Viri Armstrong DO (Electronically Signed) Final Date: 05 September 2022 13:47 S
== END 2022-09-05 11:52 | disposition home or self-care (01) ==
PROVIDERS: PCP Nurse Practitioner Family; Visit Provider Family Medicine
DX: R60.0 Localized edema (principal); M79.605 Pain in left leg
CPT/HCPCS: 93971

== ENCOUNTER 2022-11-06 07:25 | Outpatient (CLI) | payer SELFPAY ==
--- NOTE | 2022-11-06 07:45 | XR_ITS ---
WS: [id number] XR foot LT min 3V* [id number] REASON FOR EXAM: PAIN IN LEFT FOOT FINDINGS: No fracture, periosteal reaction, or bone lesion in the left forefoot. Minimal joint space narrowing with subchondral sclerosis and marginal osteophytosis in the DIP joints of the second through the fifth toes. There is mild narrowing of the Lisfranc joint with subchondral sclerosis. There is a severe medial and inferior subluxation of the navicular in relation to the cuneiform artic ulation with sclerosis and bony fragmentation. There is moderate narrowing and subchondral sclerosis in the talonavicular joint. There is a severe pes planus. There is narrowing and subchondral sclerosis of the subtalar joint. Large calcaneal Achilles and plantar enthesophytes. XR/XR foot LT min 3V* [id number] IMPRESSION: Severe deforming arthropathic change in the medial midfoot as above. Possibly this is posttraumatic, less likely neuropathic.
== END 2022-11-06 07:26 | disposition home or self-care (01) ==
PROVIDERS: PCP Nurse Practitioner Family; Visit Provider Family Medicine
DX: M79.672 Pain in left foot (principal)
CPT/HCPCS: 73630

== ENCOUNTER → 2023-04-22 10:02 | Outpatient (BNVA) | payer MEDICARE, OTHER, SELFPAY | PROVIDERS: PCP Nurse Practitioner Family; Visit Provider Podiatrist Foot & Ankle Surgery | DX: M14.672 Charcot's joint, left ankle and foot (principal); E11.8 Type 2 diabetes mellitus with unspecified complications; Z79.4 Long term (current) use of insulin | CPT/HCPCS: 73630; 99204 ==

== ENCOUNTER 2023-07-08 06:06 | Outpatient (CLI) | payer MEDICARE, OTHER, SELFPAY ==
--- NOTE | 2023-07-08 06:14 | CT_ITS ---
WS: [id number] CT LEFT ANKLE, NONCONTRAST, 3D HISTORY: PAIN IN LEFT FOOT, CHARCOT'S JOINT, LEFT ANKLE AND FOOT Technique: All CT scans at [facility] use at least one of these dose optimization techniques: automated exposure control; mA and/or kV adjustment per patient size (includes targeted exams where dose is matched to clinical indication); or iterative reconstruction. DLP: 119.28 mGy.cm COMPARISON: LEFT foot radiograph 04/22/2023 Marked deformity of the ankle joint and the midfoot. Patient has an known Charcot joint as seen radio graphically. Subluxations and dislocations at the tarsal bones. Narrowing of the tibiotalar joint spa ce. Flattening and loss of the normal arch of the foot. Well-corticated osseous fragments at the medial and lateral malleolus. No osteochondral lesion at the talar dome. No loose bodies are identified within the joint space and no fracture. Large enthesopath ies at the Achilles tendon attachment and a large plantar spur. Hypertrophic bone formation and fragm entation involving the articular surfaces of the talus and calcaneus. Marked medial displacement of t he navicular in relationship to the tarsal bones. Widening of the navicular cuboid articulation up to 13 mm. There are more numerous cortical irregularities with fragmentation of bone and erosions invol ving all the tarsal bones. No significant widening identified at the Lisfranc joint. Soft tissue edema surrounding the ankle. Flattening of the normal arch of the foot with dislocations and plantar displacement. IMPRESSION: 1. Abnormal appearance of the ankle joint and the tarsal/intertarsal articulations as also noted radi ographically. Probably representing a Charcot joint. 2. Marked widening of the navicular cuboid articulation. 3. Marked flattening of the normal arch of the foot with plantar displacement of the tarsal bones.
== END 2023-07-08 06:07 | disposition home or self-care (01) ==
LOC: RAD 06:07
PROVIDERS: PCP Nurse Practitioner Family; Visit Provider Orthopaedic Surgery Foot and Ankle Surgery
DX: M14.672 Charcot's joint, left ankle and foot (principal); M79.672 Pain in left foot
CPT/HCPCS: 73700

== ENCOUNTER → 2023-07-21 10:48 | Outpatient (BNVA) | payer MEDICARE, OTHER, SELFPAY | PROVIDERS: PCP Nurse Practitioner Family; Visit Provider Internal Medicine Rheumatology | DX: Z79.899 Other long term (current) drug therapy (principal); M19.90 Unspecified osteoarthritis, unspecified site; M45.6 Ankylosing spondylitis lumbar region; Z11.59 Encounter for screening for other viral diseases; Z11.1 Encounter for screening for respiratory tuberculosis; L40.50 Arthropathic psoriasis, unspecified; Z87.2 Personal history of diseases of the skin and subcutaneous tissue; Z71.85 Encounter for immunization safety counseling; M79.7 Fibromyalgia; E11.610 Type 2 diabetes mellitus with diabetic neuropathic arthropathy; R60.0 Localized edema | CPT/HCPCS: 36415; 73130; 73630; 82306; 83520; 86200; 86235; 86480; 86704; 86803; 86812; 87340; 99205 ==

== ENCOUNTER 2023-07-24 08:17 | Outpatient (CLI) | payer MEDICARE, OTHER, SELFPAY ==
--- NOTE | 2023-07-24 08:30 | US_ITS ---
WS: [id number] ULTRASOUND SOFT TISSUES RIGHT neck. HISTORY: R60.0 - Localized edema COMPARISON: None available. TECHNIQUE: 2-D and color Doppler imaging is submitted. Ultrasound is directed to the palpable area within the RIGHT neck. This is near the parotid gland. Th ere is a very hypoechoic solid mass with increased vascularity corresponding to the palpable mass. Th is mass measures 2.1 x 1.9 x 1.6 cm. This is probably within the parotid gland. IMPRESSION: Solid mass along the RIGHT cervical chain, probably within the parotid or submandibular gland. This i s a a solid mass. Recommend follow-up neck CT with IV contrast. Benign or malignant neoplasm need to be excluded.
== END 2023-07-24 08:18 | disposition home or self-care (01) ==
PROVIDERS: PCP Nurse Practitioner Family; Visit Provider Internal Medicine Rheumatology
DX: R22.1 Localized swelling, mass and lump, neck (principal)
CPT/HCPCS: 76536

== ENCOUNTER 2023-08-12 13:10 | Outpatient (CLI) | payer MEDICARE, OTHER, SELFPAY ==
--- NOTE | 2023-08-12 13:30 | CT_ITS ---
WS: [id number] CT NECK TECHNIQUE: Contrast-enhanced CT of the neck with coronal and sagittal reformatted images. CLINICAL INFORMATION: R60.0 - Localized edema COMPARISON: None. DLP: 231.[address] scans at [facility] use at least one of these dose optimization techniques: automated e xposure control; mA and/or kV adjustment per patient size (includes targeted exams where dose is matc hed to clinical indication); or iterative reconstruction. FINDINGS: Deep to the palpable marker is an ovoid enhancing lesion measuring approximately 1.8 x 1.6 x 1.8 cm. AP by transverse by craniocaudal. This has a solid appearance. Normal submandibular glands. Mastoid air cells are well aerated. Paranasal sinuses are well aerated. Small retention cyst LEFT maxillary sinus. Normal posterior nasopharynx and parapharyngeal fat. Tongu e base appears normal. No evidence of supraglottic or glottic mass. Lung apices are well aerated. Mild carotid bulb calcification. No cervical lymphadenopathy. Straighte roberto of the normal cervical lordosis. Moderate spondylitic changes cervical spine. IMPRESSION: 1. Deep to the palpable marker is an ovoid enhancing solid lesion measuring approximately 1.8 x 1.6 x 1.8 cm. Differential considerations include benign and malignant parotid neoplasms. This is well -circumscribed and may represent parotid adenoma but indeterminant. Recommend ENT consultation. 2. No cervical lymphadenopathy. 3. Normal salivary glands. 4. No evidence of supraglottic or glottic mass.
[2023-08-12 13:52] LABS: Blood Urea Nitrogen 18 mg/dL (8-23)
[2023-08-12] MEDS: iohexol 350 mg/mL 500 mL Btl (per mL) IV (14:05)
== END 2023-08-12 13:11 | disposition home or self-care (01) ==
LOC: RAD 13:11
PROVIDERS: PCP Nurse Practitioner Family; Visit Provider Internal Medicine Rheumatology
DX: R22.1 Localized swelling, mass and lump, neck (principal)
CPT/HCPCS: 70491; 82565; 84520; Q9967

== ENCOUNTER → 2023-08-19 12:31 | Outpatient (BNVA) | payer MEDICARE, OTHER, SELFPAY | PROVIDERS: PCP Nurse Practitioner Family; Referring Provider Internal Medicine Rheumatology; Visit Provider Otolaryngology | DX: D49.0 Neoplasm of unspecified behavior of digestive system (principal); H60.543 Acute eczematoid otitis externa, bilateral; R60.0 Localized edema | CPT/HCPCS: 99205 ==

== ENCOUNTER → 2023-08-20 08:41 | Outpatient (BNVA) | payer MEDICARE, OTHER, SELFPAY | PROVIDERS: PCP Nurse Practitioner Family; Visit Provider Internal Medicine | DX: E03.9 Hypothyroidism, unspecified; E11.610 Type 2 diabetes mellitus with diabetic neuropathic arthropathy; Z79.4 Long term (current) use of insulin; Z79.890 Hormone replacement therapy | CPT/HCPCS: 99204 ==

== ENCOUNTER 2023-08-31 14:39 | Outpatient (CLI) | payer MEDICARE, OTHER, SELFPAY ==
--- NOTE | 2023-08-31 15:08 | MM_ITS ---
WS: [id number] BILATERAL 3D TOMOSYNTHESIS DIGITAL DIAGNOSTIC MAMMOGRAPHY WITH CAD CLINICAL INFORMATION: LT BR LUMP/PAIN HISTORY: LEFT breast lump pain COMPARISON: 07/03/2021 TECHNIQUE: Bilateral CC, MLO, and ML views. FINDINGS: Scattered fibroglandular densities bilaterally. Vascular calcification. Incidental punctate and lucen t centered calcifications. Increasing irregular parenchymal density upper outer LEFT breast appears n ew from previous. This persists on the spot compression views. Patient also reports a palpable concer n in this area indicated with marker. Ultrasound of this area will be performed. Ultrasound of the RIGHT axilla is pending. A few normal-appearing lymph nodes with fatty yolie in this area on mammography. ULTRASOUND BREAST BILATERAL TECHNIQUE: Ultrasound bilateral breast focused area of concern. CLINICAL INFORMATION: LT BR LUMP/PAIN COMPARISON: 2021 FINDINGS: RIGHT BREAST: Ultrasound RIGHT axilla in the area of palpable concern. Normal-appearing lymph nodes w ith preserved fatty yolie. No suspicious lesions in the RIGHT axilla. LEFT BREAST: Ultrasound LEFT breast in the area of palpable concern demonstrates a irregular hypoecho ic solid appearing lesion which has a suspicious appearance. Recommend further evaluation with ultras ound-guided biopsy. This measures approximately 2.2 x 1.1 x 0.9 cm the 2 o'clock position 4 cm from t he nipple. Ultrasound LEFT axilla demonstrates normal-appearing lymph nodes. MM/[place] [id number] BI-RADS: 4-Suspicious Finding-Biopsy Should Be Considered FOLLOW UP: US Guided Biopsy Recommended Recommend ultrasound-guided biopsy of the suspicious lesion upper outer quadran t LEFT breast at the 2 o'clock position
== END 2023-08-31 14:40 | disposition home or self-care (01) ==
LOC: RAD 14:39
PROVIDERS: PCP Nurse Practitioner Family; Visit Provider Nurse Practitioner Family
DX: N63.21 Unspecified lump in the left breast, upper outer quadrant (principal); N64.4 Mastodynia
CPT/HCPCS: 76642; 77062; G0279

== ENCOUNTER 2023-09-29 14:17 | Observation (INO) | payer MEDICARE, OTHER, SELFPAY ==
[2023-09-29] VITALS (15 sets, daily range): BP systolic 131–170; BP diastolic 57–88; PULSE 68–90; RESP 16–19; TEMP 36.2–36.8; O2SAT 89–97; BMI 37.7; BMI 39.1
[2023-09-29 09:15] LABS: Glucose Point of Care 133 mg/dL (70-110)
[2023-09-29] MEDS: sodium chloride 0.9% 1,000 ML 30 ML IV (09:42)
--- NOTE | 2023-09-29 09:42 | W.PM.OPSUD ---
Surgery/Procedure H&P Update DATE OF PROCEDURE: September 29, 2023 DATE H&P PERFORMED: 09/25/23 CHANGES TO PREVIOUS DOCUMENTATION: None PREOP DIAGNOSIS: Right parotid neoplasm PRIMARY INDICATION FOR PROCEDURE: Right parotid mass PLANNED PROCEDURE: Operation Date: 09/29/23 10:00 Proposed Procedures p Right Parotidectomy with poss fat graft harvest [id number],R22.1(Right) - Kwame Reynolds MD
--- NOTE | 2023-09-29 09:44 | P.ANESASSM_ITS ---
Pre-Anesthetic Assessment Height/Weight: Height 1.68 m Weight 106 kg Temp Pulse Resp BP Pulse Ox O2 Del Method 97.8 F 68 16 170/88 97 Room Air 09/29/23 08:45 09/29/23 08:45 09/29/23 08:45 09/29/23 08:45 09/29/23 08:45 09/29/23 08:50 Preop Diagnosis: Right parotid neoplasm Operation Date: 09/29/23 10:00 Proposed Procedures p Right Parotidectomy with poss fat graft harvest [id number],44297,R22.1(Right) - Kwame Reynolds MD Familial anesthetic complications: none Was Beta Steve taken within 24 hours: N/A Was Clonidine taken within 24 hours: N/A Last intake: Intake Last Liquid Date 09/28/23 Last Liquid Time 22:00 Last Solid Date 09/28/23 Last Solid Time 22:00 Social No alcohol and No tobacco Exam alert, oriented x 3, clear to auscultation bilaterally and regular rate & rhythm Airway Submandibular: within normal limits Cervical ROM: within normal limits Mallampati: Class II Dentition: false CV/HEM Hypertension Metabolic Diabetes Mellitus, Morbid Obesity and Thyroid Disease Anesthetic Plan ASA status: 3 Anesthesia: General Medications/Allergies Home Medications Medication Instructions Recorded Confirmed Last Taken Type insulin detemir U-100 [Levemir See Rx Instructions .Route .COMPLEX 07/21/23 08/20/23 09/28/23 19:00 History U-100 Insulin] levothyroxine 50 mcg tablet 150 mcg PO DAILY 07/21/23 09/28/23 09/29/23 History lisinopril 40 mg tablet 40 mg PO DAILY 07/21/23 09/28/23 09/28/23 History cholecalciferol (vitamin D3) 1,250 50,000 unit PO Q7D #15 caps 08/04/23 09/28/23 09/28/23 Rx mcg (50,000 unit) capsule dulaglutide 1.5 mg/0.5 mL 1.5 mg (0.5 mL) SUBCUT Q7D 30 days 08/20/23 09/28/23 09/25/23 Rx subcutaneous pen injector #2.5 mL (Trulicity) Allergies Allergy/AdvReac Type Severity Reaction Status Date / Time lanolin [From Phisoderm] Allergy Severe swelling Verified 09/28/23 17:14 tetracycline Allergy Severe ALGY-Swell Verified 09/28/23 17:14 Lip/Tongue/Throat petrolatum,white Allergy swelling Verified 09/28/23 17:14 [From Phisoderm] steri strips Allergy ALGY-Bliste Uncoded 09/29/23 09:28 r Current Medications Generic Name Dose Route Start Last Admin Trade Name Freq PRN Reason Stop Dose Admin Sodium Chloride 1,000 mls @ 30 mls/hr 09/29/23 08:30 09/29/23 09:42 Sodium Chloride 0.9% IV 09/30/23 08:29 30 mls/hr .Q24H JESENIA Administration PFSH Anesthesia Medical History Chronic cystitis Diabetes Fibromyalgia Gross hematuria High risk medication use Hx of inverse psoriasis Hypertension Hypothyroidism Immunization counseling Psoriatic arthritis Swelling of right parotid gland Urgency of urination Surgical History H/O laparoscopy H/O total vaginal hysterectomy (~1988) TVH with A&P repair. Dx: Uterovaginal prolapse H/O vaginal surgery (07/31/20) Laparoscopic uterosacral ligament suspension, enterocele repair, A&P repair, suprapubic catheter insertion. [place] Sta[place] [facility] [place] S/P tonsillectomy and adenoidectomy Family History Father Hypertension Hypercholesteremia Mother Hypertension Hypercholesteremia Thyroid disease Other Heart disease Social History Smoking and tobacco/nicotine status: former use of tobacco/nicotine Quit status (tobacco/nicotine): has quit using Year quit tobacco: 2004 Alcohol intake: current Alcohol intake frequency: holidays/special occasions only Substance/Drug Use: never Data Anesthesia 09/29/23 09:10 Cardiac Studies: 2 No Data to Display
[2023-09-29 09:51] LABS: Anion Gap 15.7 (5-19); Blood Urea Nitrogen 16 mg/dL (8-23); Calcium 9.5 mg/dL (8.5-10.5); Carbon Dioxide 27 mmol/L (22-29); Chloride 101 mmol/L (98-107); Glomerular Filtration Rate 123.8 mL/min (90-130); Glucose 140 mg/dL (65-115); Osmolality Calculated 291 mOsm/kg (285-295); Potassium 4.7 mmol/L (3.5-5.1); Sodium 139 mmol/L (136-145)
[2023-09-29] MEDS: ceFAZolin 2,000 MG in sodium chloride 0.9% (plus) 50 ML 100 MG IV ×2 (09:53→17:19)
[2023-09-29] MEDS: ceFAZolin 1,000 mg SDV 1000 MG IRRIGATION (11:43)
[2023-09-29] MEDS: EPINEPHrine 1 mg/mL INJ 2 MG XX (11:53)
[2023-09-29] MEDS: lidocaine-epi 1% PF 1:200,000 30 mL SDV 10 ML INJECTION (11:56)
[2023-09-29] MEDS: fluorescein 1 mg Strip 2 MG XX (12:05)
[2023-09-29] MEDS: EPINEPHrine 1 mg/mL INJ XX (12:06)
[2023-09-29] MEDS: thrombin 5,000 unit SDV 5000 UNIT XX (12:25)
[2023-09-29] MEDS: neomycin-poly-bacitracin oint 28 gm 1 APPLIC TOPICAL (13:43)
[2023-09-29] MEDS: triamcinolone 40 mg/mL SDV IM (13:55)
--- NOTE | 2023-09-29 14:02 | PM.OP ---
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 Post-op findings: - 2 cm right superficial parotid mass in the preauricular parotid gland - Right facial nerve identified and preserved in place Procedure done: Right superficial parotidectomy Implants: None Specimens removed/disposition: Right parotid mass Pathology: Right parotid mass Surgeon: Kwame Reynolds MD Diesel Dragline Operator: Naeem Guzman Anesthesia: General Estimated blood loss (mL): 30 IV fluids (mL): 1,300 Complications: None Findings: - 2 X 2.5 cm right superficial parotid mass anterior to the right ear lobule - Right facial nerve identified and preserved intact - O/W normal right parotid gland Condition: stable Disposition: PACU Brief History: 67 yo wf with a h/o a slowly enlarging right parotid mass who desires excisional biopsy. Procedure: The patient was identified in the preoperative holding area and was taken to the operating room where she was placed on the operating table in the supine position. Anesthesia was obtained with general endotracheal anesthesia and the table was then turned 180 degrees. The Nirvana nerve monitoring system was placed on the patient's right face and a modified Jorge incision was marked out on the patient's right face and injected with local anesthesia. An incision was also marked out on the left lower quadrant of the abdomen and was injected with local anesthesia. The patient was then prepped and draped in the usual sterile fashion. The incision was then made with a 15 blade and was carried down to the subcutaneous tissues with a 15 blade. A subcutaneous flap was raised that was anteriorly based over the parotid and then a broad dissection was begun along the posterior edge of the parotid in the immediate preauricular area and and over the sternocleidomastoid. The great auricular nerve was identified and a large branch was preserved to the lobule of the left ear right ear. At this point a wide front was dissected free as described above with the deepest portion at the tympanomastoid suture line. At this point the right facial nerve was identified both visually and electrically with the Nirvana nerve dissecting hemostat. The right facial nerve was then dissected free from the surrounding tissues beginning at the main trunk and extending out past the pes anserinus of the facial nerve to the peripheral branches with the Neurvana nerve monitoring hemostat. The overlying preauricular mass was then dissected free from the underlying facial nerve as it was resting on the facial nerve all while monitoring facial nerve function with the nerve monitoring hemostat. Once the facial nerve was dissected out in its entirety the mass was removed with blunt dissection and microbipolar forceps. The facial nerve was intact both visually and electrically at this point. The mass was sent for frozen section analysis which came back as a pleomorphic adenoma. Once the diagnosis was rendered, a fat graft was harvested from the patient's left lower quadrant with 15 blade and scissors. Hemostasis was achieved with electrocautery. At this point the left lower quadrant abdominal was closed after placing a [place] drain in the wound with interrupted 4 Monocryl sutures subcu and interrupted 3-0 Prolene on the skin. At this point the fat graft was fashioned into the appropriate sized to fill the surgical defect in the right parotid and was sutured in place with interrupted 4-0 Monocryl sutures. Gelfoam soaked in thrombin and Decadron was placed over the facial nerve and a drain was placed in the right facial wound. The right facial wound was then closed with interrupted 4-0 Monocryl sutures subcu and a running 5-0 Prolene on the skin. At this point the procedure was terminated and control of the patient was returned to anesthesia where she underwent an uneventful reversal of anesthesia and extubation and was taken to the recovery room in stable condition. There were no operative or anesthetic complications.
[2023-09-29] MEDS: fentaNYL 50 mcg/mL INJ 2mL IVP ×2 (14:10→14:20)
--- NOTE | 2023-09-29 14:21 | ANE.PACU2 ---
Inpatient post-anesthesia follow up: Airway intact: Yes Vital signs: Temperature 97.1 F Pulse Rate 80 Respiratory Rate 16 Blood Pressure 141/59 Pulse Oximetry 95 Oxygen Delivery Me thod Simple Mask Oxygen Flow Rate 6 Fraction of Inspir ed Oxygen Hydration adequate: Yes Nausea and vomiting: No Pain level: 2 Mental status: Baseline
[2023-09-29] MEDS: lactated ringers 1,000 ML 100 ML IV (15:11)
[2023-09-29] MEDS: morphine 4 mg/mL SDV 1 mL 2 MG IVP ×2 (15:57→20:22)
[2023-09-29] MEDS: famotidine 20 mg/2 mL INJ IVP (16:05)
[2023-09-29 16:47] LABS: Glucose Point of Care 217 mg/dL (70-110)
[2023-09-29] MEDS: insulin lispro 100 unit/1 mL SUBCUT (17:19)
[2023-09-29] MEDS: docusate sodium 100 mg Capsule PO (17:19)
[2023-09-29 22:34] LABS: Glucose Point of Care 305 mg/dL (70-110)
[2023-09-30] VITALS: BP 144/67; PULSE 82; RESP 17; TEMP 36.7; O2SAT 94
[2023-09-30] MEDS: lactated ringers 1,000 ML 100 ML IV (01:24)
[2023-09-30] MEDS: ceFAZolin 2,000 MG in sodium chloride 0.9% (plus) 50 ML 100 MG IV (01:25)
[2023-09-30 01:30] VITALS: RESP 18
[2023-09-30] MEDS: morphine 4 mg/mL SDV 1 mL 2 MG IVP (01:30)
[2023-09-30] MEDS: famotidine 20 mg/2 mL INJ IVP (03:31)
[2023-09-30 03:55] VITALS: BP 143/68; PULSE 82; RESP 16; TEMP 36.6; O2SAT 95
--- NOTE | 2023-09-30 05:21 | P.PN_ITS ---
Subjective 2 Subjective: 67 yo wf who is POD #1 s/p right superfi cial parotidectomy. The patient reports that she is doing well - she has minimal pain and is able to take po well. There are no new c/o. Medications: Reviewed: Yes Vitals/I&O/Wt Last Vital Signs Temp 97.9 F 09/30/23 03:55 Pulse 82 09/30/23 03:55 Resp 16 09/30/23 03:55 BP 143/68 09/30/23 03:55 Pulse Ox 95 09/30/23 03:55 O2 Del Method Room Air 09/30/23 03:55 O2 Flow Rate 2 09/29/23 16:50 09/29/23 09/29/23 09/30/23 14:59 22:59 06:59 Intake Total 1350 / 1350 530 / 1880 1450 / 3330 Output Total 530 / 530 Balance 820 / 820 530 / 1350 1450 / 2800 Weight last 48 hrs Weight 109.996 kg Weight 106 kg Physical Exam 2 Const: COMMON NORMALS: no acute distress, average body habitus, patient oriented x3 and alert HENMT: COMMON NORMALS: normocephalic, atraumatic and Normal external nose present HEAD & SCALP: normocephalic and atraumatic FACE & SINUS: normal facial exam NOSE: Normal external nose present MOUTH: Normal oral and palatal mucosa present Eye: COMMON NORMALS: Equal, round and reactive pupils present and conjunctivae normal CONJUNCTIVA: Yes conjunctivae normal PUPIL: Yes Equal, round and reactive pupils present Neck/C-Spine: COMMON NORMALS: full ROM and no lymphadenopathy Lymph: LYMPHATIC: no lymphadenopathy noted Resp: COMMON NORMALS: normal respiratory effort, No retractions, No use of accessory muscles and clear to auscultation bilaterally EFFORT & INSPECTION: Yes able to speak in complete sentences AUSCULTATION: clear to auscultation bilaterally Cardio: COMMON NORMALS: regular rate, regular rhythm and No murmurs present (Cardio) RATE: regular rate RHYTHM: regular rhythm GI: COMMON NORMALS: Normal to inspection, nondistended, normoactive bowel sounds present AUSCULTATION: Yes Other GI auscultation findings (Left abdominal dressing dry) Extremity: COMMON NORMALS: normal to inspection Neuro: COMMON NORMALS: patient oriented x3 and CN's II-XII intact bilaterally SENSORIUM/ORIENTATION: Yes alert and Yes other (Normal facial movement bilaterally.) Urinary Catheter Management: Alonzo: Cath Placed During This Visit: yes, but has since been removed by the nurse Urinary Catheter Date of Insertion: 09/29/23 Urinary Catheter Time of Insertion: 10:20 Date Urinary Catheter Removed: 09/29/23 Time Urinary Catheter Discontinued: 13:55 Data 09/29/23 09:10 A&P Assessment and plan (1) Parotid mass: Impression: Right parotid mass doing well s/p right superficial parotidectomy - 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 Reynolds's office on 10/02/23 - Notify Dr. Reynolds with any problems Attestations 2 Medical Necessity Statement*: The patient was observed overnight after a parotidectomy for airway monitoring. Coding Level of Care Code Acute Code for Chg Fwd Diagnoses Parotid mass K11.8
[2023-09-30 06:42] LABS: Glucose Point of Care 326 mg/dL (70-110)
[2023-09-30 08:00] VITALS: BP 160/71; PULSE 80; RESP 18; TEMP 36.5; O2SAT 94
[2023-09-30] MEDS: lisinopril 20 mg Tablet 40 MG PO (08:37)
[2023-09-30] MEDS: insulin lispro 100 unit/1 mL SUBCUT (08:37)
[2023-09-30] MEDS: docusate sodium 100 mg Capsule PO (08:37)
[2023-09-30] MEDS: levothyroxine 50 mcg Tablet 150 MCG PO (08:37)
--- NOTE | 2023-09-30 08:45 | PC.PHAR ---
pt states she takes care of her own medications-pt states her methotrexate 2.5mg take 6 tabs q7d filled 08/01/23 28d/s folic acid 1mg daily filled 08/01/23 30d/s and glipizide er 10mg daily filled 07/10/23 90d/s was all dced-pt states she is taking levothyroxine 150mcg daily see pharmacy comments on med list with last fill dates
[2023-09-30 09:51] VITALS: BP 160/71; PULSE 80; RESP 18; TEMP 36.5; O2SAT 94
== END 2023-09-30 09:53 | disposition home or self-care (01) ==
LOC: MEDSURG 14:19
PROVIDERS: Anesthesiology; Admitting Provider Specialist; PCP Nurse Practitioner Family; Visit Provider Specialist
PROC: (CPT 42410; principal; 2023-09-29 09:50)
DX: D11.0 Benign neoplasm of parotid gland (principal); I10 Essential (primary) hypertension; E11.9 Type 2 diabetes mellitus without complications; E66.01 Morbid (severe) obesity due to excess calories; Z68.39 Body mass index [BMI] 39.0-39.9, adult; Z79.4 Long term (current) use of insulin; Z87.891 Personal history of nicotine dependence
CPT/HCPCS: 42420; 36416; 51702; 80048; 82962; 88307; 88331; 96372; A4216; G0378; J0171; J0330; J0360; J0690; J1100; J1170; J1815; J2270; J2405; J2704; J3010; J3301; J3490; J7030; J7120

== ENCOUNTER 2023-11-17 11:02 | Outpatient (CLI) | payer MEDICARE, OTHER, SELFPAY ==
[2023-11-17 12:10] LABS: Estmated Average Glucose 180; Hemoglobin A1C 7.9 % (4.0-6.0)
[2023-11-17 12:20] LABS: Alanine Aminotransferase 13 U/L (0-33); Albumin Level 3.9 g/dL (3.5-5.2); Alkaline Phosphatase 91 U/L (35-105); Anion Gap 12.5 (5-19); Aspartate Amino Transferase 11 U/L (0-32); Blood Urea Nitrogen 15 mg/dL (8-23); Calcium 9.7 mg/dL (8.5-10.5); Carbon Dioxide 32 mmol/L (22-29); Chloride 96 mmol/L (98-107); Chol HDL Ratio 2.89 mg/dL (0.0-4.40); Cholesterol 159 mg/dL (0-200); Free T4 Free Thyroxine 2.01 ng/dL (0.82-1.77); Globulin 3.1 g/dL (1.3-4.6); Glomerular Filtration Rate 100.3 mL/min (90-130); Glucose 243 mg/dL (65-115); HDL Cholesterol 55 mg/dL (60-100); LDL Cholesterol Calculated 81 mg/dL (50-129); LDL HDL Ratio 1.47 RATIO (0.00-3.22); Osmolality Calculated 291 mOsm/kg (285-295); Potassium 4.5 mmol/L (3.5-5.1); Sodium 136 mmol/L (136-145); Thyroid Stimulating Hormone 0.53 uIU/mL (0.27-4.20); Total Bilirubin 0.3 mg/dL (0.15-1.2); Triglycerides 115 mg/dL (0-150)
== END 2023-11-17 11:03 | disposition home or self-care (01) ==
LOC: LAB 11:06
PROVIDERS: PCP Nurse Practitioner Family; Visit Provider Internal Medicine
DX: E11.9 Type 2 diabetes mellitus without complications (principal)
CPT/HCPCS: 36415; 80053; 80061; 83036; 84439; 84443

== ENCOUNTER → 2023-11-20 09:03 | Outpatient (BNVA) | payer MEDICARE, OTHER, SELFPAY | PROVIDERS: PCP Nurse Practitioner Family; Visit Provider Internal Medicine | DX: E03.9 Hypothyroidism, unspecified; E11.610 Type 2 diabetes mellitus with diabetic neuropathic arthropathy; Z79.890 Hormone replacement therapy; Z79.4 Long term (current) use of insulin | CPT/HCPCS: 99214 ==

== ENCOUNTER 2023-12-04 09:55 | Outpatient (CLI) | payer MEDICARE, OTHER, SELFPAY ==
[2023-12-04 10:55] LABS: Free T4 Free Thyroxine 1.63 ng/dL (0.82-1.77)
== END 2023-12-04 09:56 | disposition home or self-care (01) ==
LOC: LAB 09:56
PROVIDERS: PCP Nurse Practitioner Family; Visit Provider Internal Medicine
DX: E11.9 Type 2 diabetes mellitus without complications (principal)
CPT/HCPCS: 36415; 84439

== ENCOUNTER → 2023-12-07 13:41 | Outpatient (BNVA) | payer MEDICARE, OTHER, SELFPAY | PROVIDERS: PCP Nurse Practitioner Family; Visit Provider Internal Medicine Rheumatology | DX: L40.50 Arthropathic psoriasis, unspecified (principal); Z87.2 Personal history of diseases of the skin and subcutaneous tissue; Z79.899 Other long term (current) drug therapy; Z71.85 Encounter for immunization safety counseling; M79.7 Fibromyalgia; E11.610 Type 2 diabetes mellitus with diabetic neuropathic arthropathy; R60.0 Localized edema; C50.919 Malignant neoplasm of unspecified site of unspecified female breast | CPT/HCPCS: 99214 ==

== ENCOUNTER → 2024-01-14 07:53 | Outpatient (BNVA) | payer MEDICARE, OTHER, SELFPAY | PROVIDERS: PCP Nurse Practitioner Family; Visit Provider Internal Medicine | DX: E11.9 Type 2 diabetes mellitus without complications (principal); E03.9 Hypothyroidism, unspecified; E11.610 Type 2 diabetes mellitus with diabetic neuropathic arthropathy | CPT/HCPCS: 99214 ==

== ENCOUNTER → 2024-04-04 13:27 | Outpatient (BNVA) | payer MEDICARE, OTHER, SELFPAY | PROVIDERS: PCP Nurse Practitioner Family; Visit Provider Internal Medicine Rheumatology | DX: Z79.899 Other long term (current) drug therapy (principal); L40.50 Arthropathic psoriasis, unspecified; Z87.2 Personal history of diseases of the skin and subcutaneous tissue; Z71.85 Encounter for immunization safety counseling; M79.7 Fibromyalgia; E11.610 Type 2 diabetes mellitus with diabetic neuropathic arthropathy; R60.0 Localized edema; C50.919 Malignant neoplasm of unspecified site of unspecified female breast | CPT/HCPCS: 99214 ==

== ENCOUNTER 2024-04-20 11:43 | Outpatient (CLI) | payer MEDICARE, OTHER, SELFPAY ==
[2024-04-20 12:43] LABS: Basophils # 0.1 10^3/uL (0.0-0.1); Basophils % 0.6 %; Eosinophils # 0.2 10^3/uL (0.0-0.8); Eosinophils % 1.9 %; Hematocrit 38.3 % (36-47); Lymphocytes # 1.1 10^3/uL (0.8-4.8); Lymphocytes % 12.2 %; Mean Corpuscular HGB Conc 33.4 g/dL (30-55); Mean Corpuscular Hemoglobin 30.7 pg (27-33); Mean Corpuscular Volume 91.8 fl (85-98); Mean Platelet Volume 9.5 fL (7.4-10.4); Monocytes # 0.4 10^3/uL (0.2-0.9); Monocytes % 4.5 %; Neutrophils # 7.08 10^3/uL (1.8-7.7); Neutrophils % 80.2 %; Nucleated Red Blood Cells % 0 %; Platelet Count 221 10^3/cmm (157-399); Red Blood Count 4.17 10^6/uL (3.85-5.65); Red Cell Distribution Width 13.1 % (12.1-15.1); White Blood Count 8.83 10^3/uL (3.29-11.43)
[2024-04-20 12:44] LABS: Erythrocyte Sedimentation Rate 18 mm/hr (0-15)
[2024-04-20 13:02] LABS: Alanine Aminotransferase 11 U/L (0-33); Alkaline Phosphatase 90 U/L (35-105); Anion Gap 12.8 (5-19); Aspartate Amino Transferase 14 U/L (0-32); Blood Urea Nitrogen 16 mg/dL (8-23); Calcium 9.4 mg/dL (8.5-10.5); Carbon Dioxide 29 mmol/L (22-29); Chloride 102 mmol/L (98-107); Globulin 3.3 g/dL (1.3-4.6); Glomerular Filtration Rate 123.4 mL/min (90-130); Glucose 173 mg/dL (65-115); Osmolality Calculated 293 mOsm/kg (285-295); Potassium 4.8 mmol/L (3.5-5.1); Sodium 139 mmol/L (136-145); Total Bilirubin 0.4 mg/dL (0.15-1.2); Total Protein 7.3 g/dL (6.6-8.7)
[2024-04-20 13:08] LABS: Creatinine Urine, Random 93 mg/dL (28-217); Microalbum Creatinine Ratio Ur 140 mg/dL (0-20); Microalbumin Random Urine 13 ug/dL (0-20)
[2024-04-20 13:12] LABS: Alanine Aminotransferase 11 U/L (0-33); Alkaline Phosphatase 90 U/L (35-105); Aspartate Amino Transferase 14 U/L (0-32); C Reactive Protein 5.2 mg/L (0.0-4.9); Chol HDL Ratio 2.65 mg/dL (0.0-4.40); Cholesterol 138 mg/dL (0-200); Free T4 Free Thyroxine 1.59 ng/dL (0.82-1.77); Globulin 3.3 g/dL (1.3-4.6); Glomerular Filtration Rate 123.4 mL/min (90-130); HDL Cholesterol 52 mg/dL (60-100); LDL Cholesterol Calculated 61 mg/dL (50-129); LDL HDL Ratio 1.17 RATIO (0.00-3.22); Thyroid Stimulating Hormone 0.54 uIU/mL (0.27-4.20); Total Bilirubin 0.3 mg/dL (0.15-1.2); Total Protein 7.3 g/dL (6.6-8.7); Triglycerides 127 mg/dL (0-150)
[2024-04-20 13:16] LABS: Prealbumin 17.4 mg/dL (20-40)
[2024-04-20 14:41] LABS: Estmated Average Glucose 194; Hemoglobin A1C 8.4 % (4.0-6.0)
== END 2024-04-20 11:44 | disposition home or self-care (01) ==
LOC: LAB 11:44
PROVIDERS: Absent Provider Nurse Practitioner Family; PCP Nurse Practitioner Family; Referring Provider Internal Medicine Rheumatology; Visit Provider Internal Medicine
DX: E11.622 Type 2 diabetes mellitus with other skin ulcer (principal)
CPT/HCPCS: 36415; 80053; 80061; 80076; 82044; 82565; 83036; 84134; 84439; 84443; 85025; 85651; 86140